=== PATIENT | female | born 1950 | race Caucasian/White ===

== ENCOUNTER → 2020-01-13 11:16 | Outpatient (BNVA) | payer BC, MEDICAID, SELFPAY | PROVIDERS: PCP Registered Nurse; Visit Provider Internal Medicine Rheumatology | DX: M25.50 Pain in unspecified joint (principal); Z79.899 Other long term (current) drug therapy; Z11.59 Encounter for screening for other viral diseases; Z11.1 Encounter for screening for respiratory tuberculosis; R76.8 Other specified abnormal immunological findings in serum; M54.32 Sciatica, left side; M48.02 Spinal stenosis, cervical region; M54.12 Radiculopathy, cervical region | CPT/HCPCS: 36415; 99204 ==

== ENCOUNTER 2020-01-13 13:18 | Outpatient (CLI) | payer MEDICARE, MEDICAID, SELFPAY ==
--- NOTE | 2020-01-13 14:11 | XR_ITS ---
WS: [id number] CHEST 2 VIEWS HISTORY: inflammatory arthritis COMPARISON: 05/05/2013 Lungs: Clear with no abnormality. No pleural effusion or pneumothorax. Cardiac size: Mildly enlarged cardiac silhouette. Mediastinum/Aorta: Mild atherosclerosis aorta. Bones: Slight increase in thoracic kyphosis with mild spondylitic changes in the thoracic spine. XR/XR chest 2V* [id number] IMPRESSION: Mild cardiomegaly. No acute interval change.
--- NOTE | 2020-01-13 14:11 | XR_ITS ---
WS: [id number] LEFT HAND: 3 VIEW(S) TECHNIQUE: PA, oblique and lateral. HISTORY: inflammatory arthritis COMPARISON: None available. No acute fracture or dislocation. Mild narrowing of the interphalangeal joints. Moderate osteoarthritic changes at the first carpometac arpal joint. No erosions. Minimal osteopenia. XR/XR hand LT min 3V* [id number] IMPRESSION: Mild osteoarthritis.
--- NOTE | 2020-01-13 14:11 | XR_ITS ---
WS: [id number] RIGHT FOOT: 3 VIEW(S) TECHNIQUE: AP, oblique and lateral. HISTORY: inflammatory arthritis COMPARISON: None available. No acute fracture or dislocation. Normal tarsal/metatarsal alignment. No soft tissue abnormality or bone destruction. Small calcaneal spur. Enthesopathy at the Achilles tendon. XR/XR foot RT min 3V* [id number] IMPRESSION: Small calcaneal spur.
--- NOTE | 2020-01-13 14:11 | XR_ITS ---
WS: [id number] LEFT FOOT: 3 VIEW(S) TECHNIQUE: AP, oblique and lateral. HISTORY: inflammatory arthritis COMPARISON: None available. No acute fracture or dislocation. Mild narrowing of the first metatarsophalangeal joint. Small calcaneal spur. Enthesopathy at the Achi lles tendon. Hammertoe deformities. No erosions. No soft tissue abnormality or bone destruction. XR/XR foot LT min 3V* [id number] IMPRESSION: Mild osteoarthritis at the first metatarsophalangeal joint.
--- NOTE | 2020-01-13 14:11 | XR_ITS ---
WS: [id number] RIGHT HAND: 3 VIEW(S) TECHNIQUE: PA, oblique and lateral. HISTORY: inflammatory arthritis COMPARISON: None available. No acute fracture or dislocation. Mild interphalangeal joint space narrowing. Moderate first carpometacarpal joint space narrowing and sclerosis. No erosions. Mild osteopenia. XR/XR hand RT min 3V* [id number] IMPRESSION: Mild to moderate osteoarthritis.
== END 2020-01-13 13:19 | disposition home or self-care (01) ==
LOC: RADWPI 13:25
PROVIDERS: PCP Registered Nurse; Visit Provider Internal Medicine Rheumatology
DX: Z79.899 Other long term (current) drug therapy; R76.8 Other specified abnormal immunological findings in serum; M19.042 Primary osteoarthritis, left hand; M19.041 Primary osteoarthritis, right hand; M19.072 Primary osteoarthritis, left ankle and foot; M77.31 Calcaneal spur, right foot; I51.7 Cardiomegaly
CPT/HCPCS: 71046; 73130; 73630; 80076; 82306; 82565; 85025; 85651; 86140; 86431; 86480; 86704; 86803; 87340

== ENCOUNTER → 2020-02-16 12:53 | Outpatient (BNVA) | payer MEDICARE, MEDICAID, SELFPAY | PROVIDERS: PCP Registered Nurse; Visit Provider Internal Medicine Rheumatology | DX: M25.50 Pain in unspecified joint (principal); Z79.899 Other long term (current) drug therapy; R76.8 Other specified abnormal immunological findings in serum; M54.32 Sciatica, left side; M48.02 Spinal stenosis, cervical region; M54.12 Radiculopathy, cervical region | CPT/HCPCS: 99214 ==

== ENCOUNTER 2020-07-24 15:00 | Observation (INO) | payer MEDICARE, MEDICAID, SELFPAY ==
[2020-07-24] VITALS (10 sets, daily range): BP systolic 91–165; BP diastolic 60–110; PULSE 87–112; RESP 16–24; TEMP 36.6–37.1; O2SAT 95–98
--- NOTE | 2020-07-24 16:15 | XRR_ITS ---
PROCEDURE INFORMATION: Exam: XR Chest Exam date and time: 07/24/2020 4:18 PM Age: 69 years old Clinical indication: Cough and dyspnea; Additional info: Dyspnea/cough TECHNIQUE: Imaging protocol: XR of the chest. Views: 1 view. COMPARISON: CR XR chest 2V* [id number] 01/13/2020 2:26 PM FINDINGS: Lungs: Unremarkable. No consolidation. Pleural spaces: Unremarkable. No pleural effusion. No pneumothorax. Heart/Mediastinum: Unremarkable. No cardiomegaly. Bones/joints: Unremarkable. XR/XR chest 1V portable [id number] IMPRESSION: 1. No acute findings. 2. No change from comparison.
--- NOTE | 2020-07-24 16:15 | ECG_ITS ---
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 Measurements Intervals [place] Rate: 131 P: PA: QRS: 40 QRSD: 90 T: -4 QT: 301 QTc: 446 Interpretive Statements ATRIAL FIBRILLATION WITH RAPID VENTRICULAR RESPONSE NONSPECIFIC T-WAVE ABNORMALITY ABNORMAL RHYTHM ECG No previous ECG available for comparison Electronically Signed On 07-25-2020 12:11:39 CDT by Zaina Paniagua M.D. [email or web address]yt[employer] Softw[facility].[employer]/store/NU/[id number]/[id number] f
--- NOTE | 2020-07-24 16:18 | W.ED.SOB ---
HPI - SOB/Dyspnea General: Chief Complaint: Shortness of Breath/Dyspnea Stated Complaint: HAD FLU SYMPTOMS, CANNOT GET OVER COUGH Time Seen by Provider: 07/24/20 16:01 History of Present Illness: HPI Narrative: 69-year-old female who presents to the emergency room with complaints of shortness of breath. She initially began a week ago she had a fever and a productive cough the fever resolved solved but she still short of breath still having some productive cough some mild orthopnea. She has a history of hypertension atrial fibrillation she been taking all of her medications but at times feels like her A. fib is still a problem. She has limited stamina. She is on anticoagulants and rate control medications. He did not had any anosmia or diarrhea during this episode. MD elicited complaint: shortness of breath and cough Onset (ago): week(s) Context: recent illness Timing: constant Severity: moderate Exacerbating factors: lying flat, exertion and coughing Relieving factors: oxygen, rest and bronchodilators Known history of: other (Atrial fibrillation) Associated symptoms: Reports cough, myalgias, nausea, orthopnea and palpitations; Deny abdominal pain, chest congestion, chest pain, diaphoresis, dizziness, extremity pain, fever(s), hemoptysis, lightheadedness, paresthesias, polydipsia, polyuria, rash, sense of impending doom, syncope or vomiting Treatment prior to arrival: bronchodilator Review of Systems Const: Denies: fever(s) or diaphoresis ENMT: Denies: throat pain, ear or mastoid pain, nasal discharge or nasal congestion Card: Reports: palpitations and orthopnea; Denies: chest pain, lightheadedness or syncope Resp: Denies: hemoptysis or chest congestion GI: Reports: nausea; Denies: abdominal pain or vomiting : Denies: flank pain, difficulty voiding, dysuria, urinary frequency or urinary urgency Musc: Denies: extremity pain Skin/Breast: Denies: rash or pruritus Neuro: Denies: dizziness Endo: Denies: polyuria or polydipsia PFS ED PFSH: Medical History Anti-TPO antibodies present Arthritis Atrial fibrillation Degenerative joint disease (DJD) of lumbar spine Diastolic dysfunction 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 High risk medication use HTN (hypertension) IBS (irritable bowel syndrome) Immunization counseling Inflammatory arthritis Recurrent major depressive disorder Stenosis, cervical spine Systemic lupus erythematosus Surgical History S/p bilateral carpal tunnel release S/P cholecystectomy S/P foot surgery, left S/P lumbar discectomy S/P tubal ligation Family History Father Cancer Other Diabetes Lung disease Rheumatoid arthritis Denies family history of Lupus CAD (coronary artery disease) Chronic kidney disease (CKD) Hypertension Stroke Social History Smoking and tobacco status: never smoked Marital status: History of recent travel: No Physical Exam Const: COMMON NORMALS: no acute distress GENERAL APPEARANCE: cooperative and comfortable ORIENTATION/CONSCIOUSNESS: Yes awake, Yes oriented to person, Yes oriented to place and Yes oriented to time HENMT: COMMON NORMALS: normocephalic, atraumatic and hearing grossly normal bilaterally HEAD & SCALP: normocephalic and atraumatic Neck/C-Spine: COMMON NORMALS: no JVD Resp: COMMON NORMALS: normal respiratory effort, No retractions, No use of accessory muscles and clear to auscultation bilaterally AUSCULTATION: clear to auscultation bilaterally Cardio: COMMON NORMALS: no JVD RATE: tachycardic RHYTHM: abnormal rhythm irregularly irregular GI: COMMON NORMALS: Soft to palpation and No hepatosplenomegaly present AUSCULTATION: Yes normoactive bowel sounds PALPATION: Yes Soft to palpation, No Tenderness to palpation present (GI), No Guarding due to palpation present (GI) and Yes No hepatosplenomegaly present Extremity: COMMON NORMALS: normal to inspection, capillary refill normal, no clubbing, cyanosis or edema, no calf tenderness and no pedal edema Neuro: SENSORIUM/ORIENTATION: Yes oriented to person, Yes oriented to place and Yes oriented to time Skin: COMMON NORMALS: no rashes or lesions noted GENERAL SKIN EXAM: no rashes or lesions noted Course Vital Signs: Vital signs: Vital Signs Temperature 97.8 F 07/25/20 15:29 Pulse Rate 91 07/25/20 15:29 Respiratory Rate 17 07/25/20 15:29 Blood Pressure 98/64 07/25/20 15:29 Pulse Oximetry 97 07/25/20 15:29 MDM - SOB/Dyspnea MDM Narrative: Medical decision making narrative: Initially tried IV and p.o. beta-arleen no improvement switch to Cardizem drip for rate improved will need to be titrated off back to orals we will go ahead and admit discussed with hospitalist orders written Lab Data: Labs: Lab Results 07/24/20 07/24/20 07/24/20 Range/Units 16:15 17:00 17:00 WBC 6.0 (4.0-10.0) 10^3/ uL RBC 4.38 (4.1-5.3) 10^6/u L Hgb 13.5 (11.5-15.3) g/dL Hct 42.0 (37.0-47.0) % MCV 95.9 (81-99) fL MCH 30.8 (28.0-34.0) pg MCHC 32.1 (30.0-36.0) g/dL RDW 12.6 (12.1-15.1) % Plt Count 230 (130-400) 10^3/c mm MPV 10.0 (7.4-10.4) fL Neut % (Auto) 55.6 % Lymph % (Auto) 33.2 % [place] % (Auto) 8.7 % Eos % (Auto) 1.8 % Baso % (Auto) 0.5 % Neut # (Auto) 3.34 (1.8-7.7) 10^3/u L Lymph # (Auto) 2.0 (0.8-4.8) 10^3/u L [place] # (Auto) 0.5 (0.2-0.9) 10^3/u L Eos # (Auto) 0.1 (0.0-0.8) 10^3/u L Baso # (Auto) 0.0 (0.0-0.1) 10^3/u L Nucleated RBC % (a uto) 0 % Nucleated RBCs # 0.0 /100WBC D-Dimer 0.38 (0-0.59) ug/mIFE U Sodium (136-145) mmol/L Potassium (3.5-5.1) mmol/L Chloride (98-107) mmol/L Carbon Dioxide (22-29) mmol/L Anion Gap (5-19) BUN (8-23) mg/dL Creatinine (0.5-0.9) mg/dL GFR Calculation (90-130) mL/min Glucose (65-115) mg/dL Calculated Osmolal ity (285-295) mOsm/k g Calcium (8.5-10.5) mg/dL Total Bilirubin (0.15-1.2) mg/dL AST (0-32) U/L ALT (0-33) U/L Alkaline Phosphata se (35-105) IU/L Troponin T Baselin e (0-10) ng/L Total Protein (6.6-8.7) g/dL Albumin (3.5-5.2) g/dL Globulin (1.3-4.6) g/dL SARS-CoV-2 Ag (Rap id) Negative (Negative) 07/24/20 07/24/20 Range/Units 17:00 17:00 WBC (4.0-10.0) 10^3/ uL RBC (4.1-5.3) 10^6/u L Hgb (11.5-15.3) g/dL Hct (37.0-47.0) % MCV (81-99) fL MCH (28.0-34.0) pg MCHC (30.0-36.0) g/dL RDW (12.1-15.1) % Plt Count (130-400) 10^3/c mm MPV (7.4-10.4) fL Neut % (Auto) % Lymph % (Auto) % [place] % (Auto) % Eos % (Auto) % Baso % (Auto) % Neut # (Auto) (1.8-7.7) 10^3/u L Lymph # (Auto) (0.8-4.8) 10^3/u L [place] # (Auto) (0.2-0.9) 10^3/u L Eos # (Auto) (0.0-0.8) 10^3/u L Baso # (Auto) (0.0-0.1) 10^3/u L Nucleated RBC % (a uto) % Nucleated RBCs # /100WBC D-Dimer (0-0.59) ug/mIFE U Sodium 142 (136-145) mmol/L Potassium 3.9 (3.5-5.1) mmol/L Chloride 108 H (98-107) mmol/L Carbon Dioxide 24 (22-29) mmol/L Anion Gap 13.9 (5-19) BUN 11 (8-23) mg/dL Creatinine 0.8 (0.5-0.9) mg/dL GFR Calculation 70.9 L (90-130) mL/min Glucose 117 H (65-115) mg/dL Calculated Osmolal ity 294 (285-295) mOsm/k g Calcium 7.9 L (8.5-10.5) mg/dL Total Bilirubin 0.4 (0.15-1.2) mg/dL AST 14 (0-32) U/L ALT 11 (0-33) U/L Alkaline Phosphata se 75 (35-105) IU/L Troponin T Baselin e 14 H (0-10) ng/L Total Protein 6.3 L (6.6-8.7) g/dL Albumin 3.5 (3.5-5.2) g/dL Globulin 2.8 (1.3-4.6) g/dL SARS-CoV-2 Ag (Rap id) (Negative) Discharge Plan Discharge Patient Disposition: Admitted As Inpatient Admit Provider: Darrel Ling Clinical Impression: Atrial fibrillation with rapid ventricular response, Diastolic dysfunction, HTN (hypertension) Condition: Stable Discharge Diet: Cardiac Discharge Activity: Resume usual activity Coding Level of Care Code ED Ingot Buggy Operator for Lisseth Fwd Exam Comprehensive
[2020-07-24 17:21] LABS: SARS Covid-2 Antigen Negative (Negative)
[2020-07-24 17:33] LABS: Basophils % 0.5 %; Eosinophils # 0.1 10^3/uL (0.0-0.8); Eosinophils % 1.8 %; Hemoglobin 13.5 g/dL (11.5-15.3); Lymphocytes % 33.2 %; Mean Corpuscular HGB Conc 32.1 g/dL (30.0-36.0); Mean Corpuscular Hemoglobin 30.8 pg (28.0-34.0); Mean Corpuscular Volume 95.9 fL (81-99); Monocytes # 0.5 10^3/uL (0.2-0.9); Monocytes % 8.7 %; Neutrophils # 3.34 10^3/uL (1.8-7.7); Neutrophils % 55.6 %; Nucleated Red Blood Cells % 0 %; Platelet Count 230 10^3/cmm (130-400); Red Blood Count 4.38 10^6/uL (4.1-5.3); Red Cell Distribution Width 12.6 % (12.1-15.1)
[2020-07-24 17:36] LABS: D Dimer 0.38 ug/mIFEU (0-0.59)
[2020-07-24 17:41] LABS: Alanine Aminotransferase 11 U/L (0-33); Albumin Level 3.5 g/dL (3.5-5.2); Alkaline Phosphatase 75 IU/L (35-105); Anion Gap 13.9 (5-19); Aspartate Amino Transferase 14 U/L (0-32); Blood Urea Nitrogen 11 mg/dL (8-23); Calcium 7.9 mg/dL (8.5-10.5); Carbon Dioxide 24 mmol/L (22-29); Chloride 108 mmol/L (98-107); Globulin 2.8 g/dL (1.3-4.6); Glomerular Filtration Rate 70.9 mL/min (90-130); Glucose 117 mg/dL (65-115); Osmolality Calculated 294 mOsm/kg (285-295); Potassium 3.9 mmol/L (3.5-5.1); Sodium 142 mmol/L (136-145); Total Bilirubin 0.4 mg/dL (0.15-1.2); Total Protein 6.3 g/dL (6.6-8.7)
[2020-07-24 17:42] LABS: Troponin(5th) Baseline 14 ng/L (0-10)
[2020-07-24] MEDS: metoprolol tartrate 1 mg/1 mL SDV 5 mL 5 MG IV (18:13)
[2020-07-24] MEDS: metoprolol tartrate 50 mg Tablet PO ×2 (18:13→23:13)
--- NOTE | 2020-07-24 18:15 | ECG_ITS ---
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 Measurements Intervals [place] Rate: 80 P: ND: QRS: 45 QRSD: 94 T: 21 QT: 363 QTc: 419 Interpretive Statements ATRIAL FIBRILLATION ABNORMAL RHYTHM ECG Compared to ECG 07/24/2020 16:57:27 T-wave abnormality no longer present Electronically Signed On 07-25-2020 12:34:49 CDT by Zaina Paniagua M.D. [email or web address] Medicalmagee general hospitalAppcara [facility].[employer]/store/NU/[id number]/[id number] f
--- NOTE | 2020-07-24 18:22 | PM.HP ---
Providers/Chief Complaint Primary Care Provider: Gilda Ayoub Chief Complaint: HAD FLU SYMPTOMS, CANNOT GET OVER COUGH History of Present Illness Lisa Montoya is a 69 year old female with a past medical history of atrial fibrillation on Eliquis, history of Guillain-Bennett?, history of lupus, history of positive antip.o. 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 Patient tells me for the last 2 weeks she has been feeling sick, fatigue, malaise, nonproductive cough, shortness of breath with exertion, chest tightness, chest palpitations. She tells me that she had a fever maybe a week ago. No known exposure to COVID-19. No loss of taste, no loss of smell. No diarrhea. She tells me that she is feeling short of breath so she used a old nebulizer package that she had, when she used it her heart started racing, and took a long time before it came down. Denies smoking. No history of lung disease. Chest tightness is primary in the middle of the chest expiratory shortness of breath. Nonradiating. No diaphoresis. No lightheadedness. No dizziness. She also reports poor appetite. Review of Systems Const: Reports: fever(s), change in appetite, fatigue and malaise; Denies: chills Eyes: Denies: change in vision or blurry vision ENMT: Reports: throat pain and nasal congestion Card: Reports: chest pain, palpitations, irregular heart rhythm and dyspnea on exertion Resp: Reports: dyspnea and non-productive cough; Denies: productive cough or wheezing GI: Denies: abdominal pain, nausea, vomiting, hematemesis, diarrhea, constipation, hematochezia or melena : Denies: flank pain, dysuria or urinary frequency Musc: Reports: joint pain; Denies: neck pain or back pain Skin/Breast: Denies: rash Neuro: Denies: headache(s), dizziness or vertigo Psych: Denies: anxiety or depression Endo: Denies: polyuria or polydipsia Medications/Allergies Home Medications Medication Instructions Recorded Confirmed Last Taken Type apixaban 5 mg tablet 5 mg PO BID@1100,2300 01/07/24/20 07/24/20 History dicyclomine 10 mg capsule 20 mg PO QID PRN cap 04/19/19 07/24/20 Unknown History fluticasone propionate 50 2 spray INTRANASAL DAILY@1100 ml 04/19/19 07/24/20 07/24/20 History mcg/actuation nasal spray,suspension furosemide 20 mg tablet 20 mg PO DAILY PRN tab 10/18/19 07/24/20 Unknown History naproxen 500 mg tablet 500 mg PO BID@1100,2300 tab 10/18/19 07/24/20 07/23/20 History paroxetine HCl 40 mg tablet 20 mg PO DAILY@1100 tab 10/18/19 07/24/20 07/23/20 History Cough Drops 1 dose PO Q4H PRN 07/24/20 07/24/20 07/24/20 History amlodipine 5 mg PO DAILY@1100,2300 07/24/20 07/24/20 07/24/20 14:00 History isosorbide mononitrate 15 mg PO BID@1100,2300 07/24/20 07/24/20 07/24/20 History metoprolol tartrate See Rx Instructions .ROUTE .COMPLEX 07/24/20 07/24/20 07/23/20 History prednisone 5 mg PO DAILY@1100 07/24/20 07/24/20 07/23/20 History sulfasalazine See Rx Instructions .ROUTE .COMPLEX 07/24/20 07/24/20 07/23/20 History Allergies Allergy/AdvReac Type Severity Reaction Status Date / Time Penicillins Allergy Unknown Rash Verified 06/22/20 12:14 PFSH Acute PFSH: Medical History Anti-TPO antibodies present Arthritis Atrial fibrillation Degenerative joint disease (DJD) of lumbar spine Diastolic dysfunction 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 High risk medication use HTN (hypertension) IBS (irritable bowel syndrome) Immunization counseling Inflammatory arthritis Recurrent major depressive disorder Stenosis, cervical spine Systemic lupus erythematosus Surgical History S/p bilateral carpal tunnel release S/P cholecystectomy S/P foot surgery, left S/P lumbar discectomy S/P tubal ligation Family History Father Cancer Other Diabetes Lung disease Rheumatoid arthritis Denies family history of Lupus CAD (coronary artery disease) Chronic kidney disease (CKD) Hypertension Stroke Social History Smoking and tobacco status: never smoked Marital status: History of recent travel: No Vitals/I&O/Wt Last Vital Signs Temp 98.8 F 07/24/20 15:08 Pulse 112 H 07/24/20 18:00 Resp 20 H 07/24/20 18:00 BP 165/110 07/24/20 18:00 Pulse Ox 97 07/24/20 18:00 Physical Exam Const: COMMON NORMALS: no acute distress and patient oriented x3 GENERAL APPEARANCE: cooperative and comfortable HENMT: COMMON NORMALS: normocephalic HEAD & SCALP: normocephalic Eye: COMMON NORMALS: Equal, round and reactive pupils present and EOMs intact bilaterally GENERAL EYE: appearance normal, both eyes and all related structures PUPIL: Yes Equal, round and reactive pupils present Neck/C-Spine: COMMON NORMALS: full ROM, no lymphadenopathy, no JVD and Thyroid normal THYROID: Thyroid normal Lymph: LYMPHATIC: no lymphadenopathy noted Resp: COMMON NORMALS: normal respiratory effort, No retractions, No use of accessory muscles and clear to auscultation bilaterally AUSCULTATION: clear to auscultation bilaterally Cardio: COMMON NORMALS: no JVD, regular rate, regular rhythm, S1 normal heart sound present, S2 normal heart sound present, No gallops present (Cardio), No clicks present (Cardio) and No murmurs present (Cardio) RATE: tachycardic RHYTHM: abnormal rhythm HEART SOUNDS: S1 normal heart sound present and S2 normal heart sound present GI: COMMON NORMALS: Normal to inspection, nondistended, normoactive bowel sounds present, Soft to palpation, non-tender and No hepatosplenomegaly present PALPATION: Yes Soft to palpation and Yes No hepatosplenomegaly present Extremity: COMMON NORMALS: normal to inspection, full ROM and no pedal edema Neuro: COMMON NORMALS: patient oriented x3, CN's II-XII intact bilaterally, moves all extremities and no focal motor deficits Psych: COMMON NORMALS: mental status grossly normal, Normal thought process present and cooperative THOUGHT PROCESS: Normal thought process present Data : 07/24/20 17:00 07/24/20 17:00 A&P Assessment and plan (1) Atrial fibrillation with RVR: -Heart rates 130s to 140s -Did not improve with IV metoprolol, p.o. metoprolol -Will start on Cardizem drip, switch to p.o. metoprolol tomorrow morning or when prudent -Order cardiac echocardiogram -TSH, mag -Follow troponins, serial EKGs Status: Acute (2) Diastolic dysfunction: -Does not look fluid overloaded, will order cardiac echo Status: Acute (3) HTN (hypertension): Status: Acute Qualifiers: Hypertension type: essential hypertension Qualified Code(s): I10 - Essential (primary) hypertension (4) Anti-TPO antibodies present: Status: Acute (5) Viral URI with cough: -Rapid Covid negative -X-ray negative for infiltrates -We will place on Covid precautions -Covid PCR -Sputum culture -Start doxycycline, hold off on steroids for now -Tessalon Perles for cough -He is immunocompromise on sulfasalazine and prednisone Status: Acute (6) Chest pain: -Likely related to cough, viral URI, A. fib -Serial troponins, serial EKGs -Currently chest pain-free -Aspirin, statin Status: Acute Attestations Medical Necessity Statement*: Patient requires hospitalization, outpatient with observation, for A. fib with RVR, chest pain, viral URI Coding Level of Care Code Acute Prison Warden for [facility] Fwd Diagnoses Atrial fibrillation with RVR I48.91 Diastolic dysfunction I51.89 HTN (hypertension) I10 Hypertension type: essential hypertension Anti-TPO antibodies present R76.8 Viral URI with cough J06.9 Chest pain R07.9
[2020-07-24 20:06] LABS: Troponin 5 2HR 12.98 ng/L (0-10); Troponin 5 2HR Delta -1.02 ABS# (0-10)
[2020-07-24 21:18] LABS: Magnesium 2.2 mg/dL (1.7-2.3); NT Pro B Type Natriuretic Pept 195 pg/mL (0-125); Thyroid Stimulating Hormone 1.77 uIU/mL (0.27-4.20)
[2020-07-24] MEDS: atorvastatin 40 mg Tablet PO (21:56)
[2020-07-24] MEDS: doxycycline 100 mg Tablet PO (21:56)
[2020-07-24] MEDS: naproxen 500 mg Tablet PO (22:00)
[2020-07-24] MEDS: apixaban 5 mg Tablet PO (22:00)
[2020-07-24] MEDS: isosorbide mononitrate ER 30 mg Tablet 15 MG PO (22:01)
--- NOTE | 2020-07-24 22:15 | ECG_ITS ---
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: : 1950 Requested By: Oracio Zhou Order Number: [id number] Reading MD: DERRICK CALI Measurements Intervals [place] Rate: 93 P: [place]: QRS: 38 QRSD: 96 T: 3 QT: 350 QTc: 435 Interpretive Statements ATRIAL FIBRILLATION WITH ABERRANT CONDUCTION OR VENTRICULAR PREMATURE COMPLEXES NONSPECIFIC T-WAVE ABNORMALITY ABNORMAL RHYTHM ECG Compared to ECG 07/24/2020 18:53:06 Ventricular premature complex(es) now present Aberrant conduction of supraventricular beat(s) now present T-wave abnormality now present Electronically Signed On 07-26-2020 19:24:44 CDT by DERRICK CALI [email or web address].Silvigengulf coast veterans health care systemConferenceEdgecleveland clinic [facility].[employer]/store/OM/[id number]/[id number]
[2020-07-24] MEDS: albuterol 8 gm MDI 1 PUFF INHALATION (23:25)
[2020-07-24 23:29] LABS: Troponin 5 6HR 10.09 ng/L (0-10); Troponin 5 6HR Delta -3.91 ng/L (0-12)
[2020-07-25] VITALS (12 sets, daily range): BP systolic 98–129; BP diastolic 64–85; PULSE 79–110; RESP 17–23; TEMP 36.6–36.9; O2SAT 91–97
[2020-07-25] MEDS: albuterol 8 gm MDI 1 PUFF INHALATION ×3 (04:35→11:19)
[2020-07-25 05:08] LABS: Basophils % 0.7 %; Eosinophils # 0.1 10^3/uL (0.0-0.8); Hematocrit 40.7 % (37.0-47.0); Hemoglobin 13.2 g/dL (11.5-15.3); Lymphocytes % 50.1 %; Mean Corpuscular HGB Conc 32.4 g/dL (30.0-36.0); Mean Corpuscular Hemoglobin 31.3 pg (28.0-34.0); Mean Corpuscular Volume 96.4 fL (81-99); Mean Platelet Volume 9.9 fL (7.4-10.4); Monocytes # 0.6 10^3/uL (0.2-0.9); Monocytes % 9.5 %; Neutrophils # 2.25 10^3/uL (1.8-7.7); Neutrophils % 37.5 %; Nucleated Red Blood Cells % 0 %; Platelet Count 223 10^3/cmm (130-400); Red Blood Count 4.22 10^6/uL (4.1-5.3); Red Cell Distribution Width 12.6 % (12.1-15.1)
[2020-07-25 05:36] LABS: C Reactive Protein 11.9 mg/L (0.0-4.9); Magnesium 2.1 mg/dL (1.7-2.3)
[2020-07-25 05:38] LABS: NT Pro B Type Natriuretic Pept 1120 pg/mL (0-125); Procalcitonin 0.05 ng/mL (0-0.5)
[2020-07-25 05:41] LABS: Alanine Aminotransferase 10 U/L (0-33); Albumin Level 3.3 g/dL (3.5-5.2); Alkaline Phosphatase 70 IU/L (35-105); Aspartate Amino Transferase 14 U/L (0-32); Blood Urea Nitrogen 12 mg/dL (8-23); Calcium 8.2 mg/dL (8.5-10.5); Carbon Dioxide 24 mmol/L (22-29); Chloride 109 mmol/L (98-107); Globulin 2.6 g/dL (1.3-4.6); Glomerular Filtration Rate 82.7 mL/min (90-130); Glucose 110 mg/dL (65-115); Osmolality Calculated 290 mOsm/kg (285-295); Sodium 140 mmol/L (136-145); Total Bilirubin 0.6 mg/dL (0.15-1.2); Total Protein 5.9 g/dL (6.6-8.7)
[2020-07-25 06:08] LABS: Influenza A by IFA Negative (Negative); Influenza B by IFA Negative (Negative)
[2020-07-25] MEDS: amlodipine 5 mg Tablet PO (08:58)
[2020-07-25] MEDS: FUROsemide 10 mg/mL SDV 4mL 40 MG IVP (08:58)
[2020-07-25] MEDS: doxycycline 100 mg Tablet PO (08:58)
[2020-07-25] MEDS: aspirin 81 mg EC Tablet PO (08:58)
[2020-07-25] MEDS: metoprolol tartrate 50 mg Tablet PO (09:11)
--- NOTE | 2020-07-25 09:55 | PC.CHAP ---
Pastoral Care Encounter/Spiritual Assessment Type of Contact [] Declined ortho assistant visit [] Patient/Family/Request visit [] Outpatient visit [] Follow-up visit [] Physician referral [] Code/Alert [x] Routine visit [] Staff referral [] Actively dying [] Patient sleeping [] Family support [] [] Out of room [] Palliative care [] [] Receiving care in room [] Pre-surgical visit [] Trauma [] Long length of stay [] ICU visit [x] Other: isolation Relational/Emotional Strength [] Patient feels connected with others/family/visitors/staff [] Distress [] Loneliness/isolation [] Abandonment Spirituality of Patient [] Person of Milana [] Attends Nondenominational of their Milana [] Believes in Prayer [] Reads Bible or Restorationist materials [] There are Spiritual issues to be addressed Licensed Final Expense Agents Interventions [x] Prayer [] Active listening [] Non-anxious presence [] Spiritual/emotional support [] Crisis/trauma care [] Spiritual counseling [] Bereavement support [] Provided bereavement packet [] Provided Bible/devotional materials [] Provided toy/stuffed animal, coloring book to patient or family member [] Provided Communion [] Anointing/Krypton [] Salvation [x] Completed spiritual assessment [] Other: Impact on Illness or Injury [] Angry [] Fearful [] Anxious [] Often cries [] Exhaustion [] Unable to work [] Unable to attend hoahaoism [] Unable to walk/stand [] Unable to read [] Unable to drive [] Unable to eat/drink [] Unable to sleep [] Unable to be with family [] Patient intubated [] Other: Summary Time spent with patient
[2020-07-25] MEDS: fluticasone nasal spray 16gm Btl 2 SPRAY INTRANASAL (10:45)
[2020-07-25] MEDS: naproxen 500 mg Tablet PO (10:45)
[2020-07-25] MEDS: apixaban 5 mg Tablet PO (10:45)
[2020-07-25] MEDS: PARoxetine 20 mg Tablet PO (10:45)
[2020-07-25] MEDS: isosorbide mononitrate ER 30 mg Tablet 15 MG PO (10:45)
--- NOTE | 2020-07-25 13:31 | P.DS_ITS ---
Discharge Providers Date of Admission: 07/24/20 17:53 Date of Discharge: July 25, 2020 Attending Provider at Admission: Darrel Ling MD Attending Provider at Discharge: Darrel Ling MD Primary Care Provider: Gilda Ayoub Diagnoses at Discharge Discharge Diagnosis (1) Atrial fibrillation with RVR: Status: Acute (2) Diastolic dysfunction: Status: Acute (3) HTN (hypertension): Status: Acute Qualifiers: Hypertension type: essential hypertension Qualified Code(s): I10 - Essential (primary) hypertension (4) Anti-TPO antibodies present: Status: Acute (5) Viral URI with cough: Status: Acute (6) Chest pain: Status: Acute Reason for Visit Reason for Visit: HAD FLU SYMPTOMS, CANNOT GET OVER COUGH Hospital Course Hospital Course Lisa Montoya is a 69 year old female with a past medical history of atrial fibrillation on Eliquis, history of Guillain-Bennett?, history of lupus, history of positive antip.o. antibiotics, currently on chronic prednisone and sulfasalazine, who presents to [facility] due to 2-week history of cough, sinus congestion, shortness of breath, chest palpitations and chest pain. For her viral URI, her flu was negative, rapid Covid negative, she clinically improved with doxycycline and prednisone. Discharged on doxycycline and prednisone, with instructions to continue to self isolate, socially distance, hand wash, until her Covid PCR test are known For her shortness of breath secondary to diastolic CHF and atrial fibrillation For atrial fibrillation with RVR, managed with metoprolol 50 mg twice daily, tolerated well, discharged on the top of 50 mg twice daily, with Eliquis 5 mg twice daily with close follow-up with cardiology as outpatient For diastolic CHF, managed with inpatient diuresis, clinically improved, echocardiogram showed of EF of 61%, grade 2 out of 4 diastolic dysfunction, monitor severe calcification of aortic valve which may be sclerotic to mildly stenotic. Discharged on Lasix 20 mg daily with potassium placement follow-up with cardiology as outpatient For her chest pain, no acute ST-T wave changes, troponins were mildly elevated, no significant delta, no repeat episodes of chest pain, discharged on aspirin, statin, with follow-up with cardiology as outpatient for consideration of stress testing Physical Exam Const: COMMON NORMALS: no acute distress and patient oriented x3 HENMT: COMMON NORMALS: normocephalic HEAD & SCALP: normocephalic Neck/C-Spine: COMMON NORMALS: no JVD Resp: COMMON NORMALS: normal respiratory effort, No retractions, No use of accessory muscles and clear to auscultation bilaterally AUSCULTATION: clear to auscultation bilaterally Cardio: COMMON NORMALS: no JVD, regular rate, regular rhythm, S1 normal heart sound present and S2 normal heart sound present RATE: regular rate RHYTHM: regular rhythm HEART SOUNDS: S1 normal heart sound present and S2 normal heart sound present GI: COMMON NORMALS: Normal to inspection, nondistended, normoactive bowel sounds present, Soft to palpation, non-tender, No hepatosplenomegaly present, no masses and no bruits PALPATION: Yes Soft to palpation and Yes No hepatosplenomegaly present Extremity: COMMON NORMALS: capillary refill normal, no clubbing, cyanosis or edema, no calf tenderness and no pedal edema Neuro: COMMON NORMALS: patient oriented x3 Psych: COMMON NORMALS: mental status grossly normal Discharge Data Data Completed and Pending: Completed Studies During Hospitalization Category Date Time Status XR chest 1V ye ble [id number] Stat Exams 07/24/20 16:15 Completed CV echo complete* [id number] Routine Ultrasound 07/25/20 20:41 Completed Pending at discharge Category Date Time Status C Reactive Protei n AM LABS Lab 07/26/20 04:00 Ordered C Reactive Protei n AM LABS Lab 07/27/20 04:00 Ordered Coronavirus Test [facility] Lab 07/24/20 20:21 Received Magnesium AM LABS Lab 07/26/20 04:00 Ordered Magnesium AM LABS Lab 07/27/20 04:00 Ordered NT Pro B Type April riuretic Pept QAM Lab 07/26/20 06:00 Ordered NT Pro B Type April riuretic Pept QAM Lab 07/27/20 06:00 Ordered Phosphorus AM LAB S Lab 07/26/20 04:00 Ordered Phosphorus AM LAB S Lab 07/27/20 04:00 Ordered Procalcitonin AM LABS Lab 07/26/20 04:00 Ordered Procalcitonin AM LABS Lab 07/27/20 04:00 Ordered Sputum Culture an d Gram Stain Stat Lab 07/24/20 20:41 Uncollected Labs from last 24 hours 07/25/20 07/25/20 07/25/20 05:00 04:43 04:43 WBC RBC Hgb Hct MCV MCH MCHC RDW Plt Count MPV Neut % (Auto) Lymph % (Auto) Dickens % (Auto) Eos % (Auto) Baso % (Auto) Neut # (Auto) Lymph # (Auto) Dickens # (Auto) Eos # (Auto) Baso # (Auto) Nucleated RBC % (a uto) Nucleated RBCs # D-Dimer Sodium Potassium Chloride Carbon Dioxide Anion Gap BUN Creatinine GFR Calculation Glucose Calculated Osmolal ity Calcium Phosphorus 3.0 Magnesium 2.1 Total Bilirubin AST ALT Alkaline Phosphata se Troponin T Baselin e Troponin T 120 Min [place] Delta Troponin T Troponin T Hi Sens 6Hr Troponin T Hi Sens 6Hr Delta C-Reactive Protein 11.9 H NT-Pro-B Natriuret Pep 1120 H Total Protein Albumin Globulin Procalcitonin 0.05 TSH Nasal/Oral COVID-1 9 PCR Influenza Type A A g Negative Influenza Type B A g Negative SARS-CoV-2 Ag (Rap id) 07/25/20 07/25/20 07/24/20 04:43 04:43 22:55 WBC 6.0 RBC 4.22 Hgb 13.2 Hct 40.7 MCV 96.4 MCH 31.3 MCHC 32.4 RDW 12.6 Plt Count 223 MPV 9.9 Neut % (Auto) 37.5 Lymph % (Auto) 50.1 Dickens % (Auto) 9.5 Eos % (Auto) 2.0 Baso % (Auto) 0.7 Neut # (Auto) 2.25 Lymph # (Auto) 3.0 Dickens # (Auto) 0.6 Eos # (Auto) 0.1 Baso # (Auto) 0.0 Nucleated RBC % (a uto) 0 Nucleated RBCs # 0.0 D-Dimer Sodium 140 Potassium 4.0 Chloride 109 H Carbon Dioxide 24 Anion Gap 11.0 BUN 12 Creatinine 0.7 GFR Calculation 82.7 L Glucose 110 Calculated Osmolal ity 290 Calcium 8.2 L Phosphorus Magnesium Total Bilirubin 0.6 AST 14 ALT 10 Alkaline Phosphata se 70 Troponin T Baselin e Troponin T 120 Min [place] Delta Troponin T Troponin T Hi Sens 6Hr 10.09 H Troponin T Hi Sens 6Hr Delta -3.91 L C-Reactive Protein NT-Pro-B Natriuret Pep Total Protein 5.9 L Albumin 3.3 L Globulin 2.6 Procalcitonin TSH Nasal/Oral COVID-1 9 PCR Influenza Type A A g Influenza Type B A g SARS-CoV-2 Ag (Rap id) 07/24/20 07/24/20 07/24/20 20:21 19:30 19:30 WBC RBC Hgb Hct MCV MCH MCHC RDW Plt Count MPV Neut % (Auto) Lymph % (Auto) Dickens % (Auto) Eos % (Auto) Baso % (Auto) Neut # (Auto) Lymph # (Auto) Dickens # (Auto) Eos # (Auto) Baso # (Auto) Nucleated RBC % (a uto) Nucleated RBCs # D-Dimer Sodium Potassium Chloride Carbon Dioxide Anion Gap BUN Creatinine GFR Calculation Glucose Calculated Osmolal ity Calcium Phosphorus Magnesium 2.2 Total Bilirubin AST ALT Alkaline Phosphata se Troponin T Baselin e Troponin T 120 Min [place] 12.98 H Delta Troponin T -1.02 L Troponin T Hi Sens 6Hr Troponin T Hi Sens 6Hr Delta C-Reactive Protein NT-Pro-B Natriuret Pep 195 H Total Protein Albumin Globulin Procalcitonin TSH 1.77 Nasal/Oral COVID-1 9 PCR Pending Influenza Type A A g Influenza Type B A g SARS-CoV-2 Ag (Rap id) 07/24/20 07/24/20 07/24/20 17:00 17:00 17:00 WBC RBC Hgb Hct MCV MCH MCHC RDW Plt Count MPV Neut % (Auto) Lymph % (Auto) Dickens % (Auto) Eos % (Auto) Baso % (Auto) Neut # (Auto) Lymph # (Auto) Dickens # (Auto) Eos # (Auto) Baso # (Auto) Nucleated RBC % (a uto) Nucleated RBCs # D-Dimer 0.38 Sodium 142 Potassium 3.9 Chloride 108 H Carbon Dioxide 24 Anion Gap 13.9 BUN 11 Creatinine 0.8 GFR Calculation 70.9 L Glucose 117 H Calculated Osmolal ity 294 Calcium 7.9 L Phosphorus Magnesium Total Bilirubin 0.4 AST 14 ALT 11 Alkaline Phosphata se 75 Troponin T Baselin e 14 H Troponin T 120 Min [place] Delta Troponin T Troponin T Hi Sens 6Hr Troponin T Hi Sens 6Hr Delta C-Reactive Protein NT-Pro-B Natriuret Pep Total Protein 6.3 L Albumin 3.5 Globulin 2.8 Procalcitonin TSH Nasal/Oral COVID-1 9 PCR Influenza Type A A g Influenza Type B A g SARS-CoV-2 Ag (Rap id) 07/24/20 07/24/20 17:00 16:15 WBC 6.0 RBC 4.38 Hgb 13.5 Hct 42.0 MCV 95.9 MCH 30.8 MCHC 32.1 RDW 12.6 Plt Count 230 MPV 10.0 Neut % (Auto) 55.6 Lymph % (Auto) 33.2 Dickens % (Auto) 8.7 Eos % (Auto) 1.8 Baso % (Auto) 0.5 Neut # (Auto) 3.34 Lymph # (Auto) 2.0 Dickens # (Auto) 0.5 Eos # (Auto) 0.1 Baso # (Auto) 0.0 Nucleated RBC % (a uto) 0 Nucleated RBCs # 0.0 D-Dimer Sodium Potassium Chloride Carbon Dioxide Anion Gap BUN Creatinine GFR Calculation Glucose Calculated Osmolal ity Calcium Phosphorus Magnesium Total Bilirubin AST ALT Alkaline Phosphata se Troponin T Baselin e Troponin T 120 Min [place] Delta Troponin T Troponin T Hi Sens 6Hr Troponin T Hi Sens 6Hr Delta C-Reactive Protein NT-Pro-B Natriuret Pep Total Protein Albumin Globulin Procalcitonin TSH Nasal/Oral COVID-1 9 PCR Influenza Type A A g Influenza Type B A g SARS-CoV-2 Ag (Rap id) Negative Vitals: Last Vital Signs Temp 97.8 F 07/25/20 10:45 Pulse 91 07/25/20 11:21 Resp 18 07/25/20 11:10 BP 98/64 07/25/20 10:45 Pulse Ox 96 07/25/20 11:10 Discharge Plan Discharge Patient Disposition: Home Condition: Stable Prescriptions: New benzonatate 100 mg Capsule 100 mg PO TID PRN (Reason: Cough) 15 Days Qty: 45 RF: 0 doxycycline monohydrate 100 mg Tablet 100 mg PO BID 6 Days Qty: 12 RF: 0 albuterol sulfate [Ventolin HFA] 90 mcg/actuation Hfa Aerosol Inhaler 1 puff inhalation Q4H.RESPIRATORY PRN (Reason: shortness of breath or wheezing) Qty: 8.5 RF: 0 aspirin 81 mg Tablet,Delayed Release (Dr/Ec) 81 mg PO DAILY 30 Days Qty: 30 RF: 0 atorvastatin 40 mg Tablet 40 mg PO BEDTIME 30 Days Qty: 30 RF: 0 metoprolol tartrate 50 mg Tablet 50 mg PO BID@0900,2100 30 Days Qty: 60 RF: 0 potassium chloride [Klor-Con 10] 10 mEq tablet extended release 10 meq PO DAILY 30 Days Qty: 30 RF: 0 prednisone 20 mg tablet 20 mg PO BID 5 Days Qty: 10 RF: 0 Continued apixaban 5 mg tablet 5 mg PO BID@1100,2300 RF: 0 fluticasone propionate [Flonase Allergy Relief] 50 mcg/actuation spray,suspension 2 spray INTRANASAL DAILY@1100 RF: 0 dicyclomine 10 mg capsule 20 mg PO QID PRN (Reason: abdominal cramps) RF: 0 paroxetine HCl 40 mg tablet 20 mg PO DAILY@1100 RF: 0 isosorbide mononitrate 30 mg tablet extended release 24 hr 15 mg PO BID@1100,2300 RF: 0 prednisone 5 mg tablet 5 mg PO DAILY@1100 RF: 0 amlodipine 5 mg tablet 5 mg PO DAILY Qty: 0 RF: 0 Changed furosemide 20 mg tablet 20 mg PO DAILY 30 Days Qty: 30 RF: 0 Held sulfasalazine 500 mg tablet See Rx Instructions .ROUTE .COMPLEX RF: 0 Hold Instructions: Resume on 08/08/20. until for 2 weeks Discontinued naproxen [Naprosyn] 500 mg tablet 500 mg PO BID@1100,2300 RF: 0 metoprolol tartrate 25 mg tablet See Rx Instructions .ROUTE .COMPLEX RF: 0 Cough Drops 1 dose PO Q4H PRN (Reason: Cough) RF: 0 Discharge Orders: Discharge Order (Routine); Ordered 07/25/20 Ordered By: Darrel Ling Referrals: Zaina Paniagua MD [Physician] - 2 weeks (diastolic chf) Discharge Diet: Cardiac Discharge Activity: Resume usual activity Patient Instructions: Opioid Safety Activity Restrictions/Additional Instructions: -For your viral URI please continue prednisone and doxycycline -After prednisone has finished, continue 5 mg once daily -Hold sulfasalazine until seen by rheumatology -Adjuvant Covid PCR is pending, continue to self isolate, socially distance, hand wash until results are known over the next 24 to 48 hours -For your diastolic heart failure Lasix 20 mg once daily scheduled with potassium placement, follow-up with cardiology Discharge Attestations Time Spent in Discharge Care*: less than 30 min Quality Metrics Clinical Quality Measures During this hospital stay, did patient experience: None Coding Level of Care Code Acute Chg FW DC note Exam Comprehensive Diagnoses Atrial fibrillation with RVR I48.91 Diastolic dysfunction I51.89 HTN (hypertension) I10 Hypertension type: essential hypertension Anti-TPO antibodies present R76.8 Viral URI with cough J06.9 Chest pain R07.9
[2020-07-25 14:23] LABS: Coronavirus Test Green County Not Detected
--- NOTE | 2020-07-25 20:41 | USCV_ITS ---
Lisa Montoya Age: 69 Gender: F : 1950 Exam Date: 07/25/2020 06:12 Ordering Phys: Darrel iLng MD Technologist: Exam Location: [facility] [place] Indication: SOB BP: 117 / 85 HR: 94 Rhythm: Sinus Technical Quality: Adequate MEASUREMENTS (Male / Female) Normal Values 2D ECHO LV Diastolic Diameter PLAX 3.6 cm 4.2 - 5.9 / 3.9 - 5.3 cm LV Systolic Diameter PLAX 2.8 cm IVS Diastolic Thickness 1.2 cm 0.6 - 1.0 / 0.6 - 0.9 cm IVS Systolic Thickness 1.1 cm LVPW Diastolic Thickness 1.0 cm 0.6 - 1.0 / 0.6 - 0.9 cm LVPW Systolic Thickness 1.2 cm LVOT Diameter 2.1 cm LV Ejection Fraction 2D Teich 46.2 % LV Ejection Fraction MOD 2C 50.7 % LV Ejection Fraction 2C AL 51.8 % LA Diameter 4.1 cm LA Width 4.1 cm LA Height 5.5 cm RA Width 4.5 cm RA Height 5.3 cm Aorta at Sinotubular Diameter 2.4 cm M-MODE LV Diastolic Diameter MM 5.2 cm 4.2 - 5.9 / 3.9 - 5.3 cm LV Systolic Diameter MM 3.5 cm LV Ejection Fraction MM Teich 61.6 % IVS Diastolic Thickness MM 0.8 cm 0.6 - 1.0 / 0.6 - 0.9 cm IVS Systolic Thickness MM 1.9 cm LVPW Diastolic Thickness MM 1.4 cm 0.6 - 1.0 / 0.6 - 0.9 cm LVPW Systolic Thickness MM 1.6 cm RV Diastolic Diameter MM 1.7 cm Aortic Annulus Diameter 3.1 cm LA Ao Ratio MM 1.5 MV E Point Septal Separation 0.6 cm DOPPLER AV Peak Velocity 121.0 cm/s LVOT Peak Velocity 91.0 cm/s AV Area Cont Eq vti 2.7 cm squared AV Area Cont Eq pk 2.5 cm squared MV Area PHT 5.0 cm squared Mitral E to A Ratio 2.7 MV E' Velocity 77.0 cm/s Mitral E to MV E' Ratio 12.4 Mitral E to LV E' Lateral Ratio 13.9 Mitral E to LV E' Septal Ratio 11.3 TR Peak Velocity 158.7 cm/s TR Peak Gradient 10.1 mmHg TV Peak E Velocity 90.0 cm/s Right Atrial Pressure 3.0 mmHg Pulmonary Artery Systolic Pressu 13.1 mmHg PV Peak Velocity 105.0 cm/s FINDINGS Left Ventricle Normal left ventricular cavity size. Normal left ventricular systolic function. Left ventricular ejection fraction is estimated at 61 %. Grade II/IV diastolic dysfunction, moderately elevated filling pressures. Right Ventricle The right ventricle is normal in size and function. Right Atrium The right atrium is normal in size. Left Atrium The left atrium is normal in size. Mitral Valve Structurally normal mitral valve without significant stenosis or prolapse. There is no mitral regurgitation. Aortic Valve Severe aortic valve calcification. Mild aortic valve stenosis, mean gradient 2.6 mmHg, OSVALDO 2.7 cm squared. No aortic valve regurgitation. Tricuspid Valve Structurally normal tricuspid valve without significant stenosis or regurgitation. Pulmonary artery systolic pressure is normal. Pulmonic Valve Structurally normal pulmonic valve without significant stenosis. There is no pulmonic regurgitation. Pericardium Normal pericardium without effusion. Aorta Normal ascending aorta dimension. CONCLUSIONS 1-Normal left ventricular cavity size. Normal left ventricular systolic function. Left ventricular ejection fraction is estimated at 61 %. Grade II/IV diastolic dysfunction, moderately elevated filling pressures. 2-Severe aortic valve calcification. Mild aortic valve stenosis, mean gradient 2.6 mmHg, OSVALDO 2.7 cm squared. No aortic valve regurgitation. 3-There is no pericardial effusion. 4-Pulmonary artery systolic pressure is within normal limits. 5-Right atrial pressure is around 5 mm of mercury. 6-When compared to the prior echocardiogram dated September 14, 2013 there is no significant change except moderate to severe calcification of aortic valve which may be sclerotic to mildly stenotic. Please note that this study images are of suboptimal quality. Donald Dasilva MD (Electronically Signed) Final Date: 25 July 2020 12:59 S
== END 2020-07-25 15:40 | disposition home or self-care (01) | DRG 309 ==
LOC: ER 16:01 → CSU 07-25 13:31
PROVIDERS: Admitting Provider Family Medicine; Emergency Provider Family Medicine; PCP Registered Nurse; Visit Provider Family Medicine
DX: I48.91 Unspecified atrial fibrillation (principal); I11.0 Hypertensive heart disease with heart failure; I50.30 Unspecified diastolic (congestive) heart failure; R76.8 Other specified abnormal immunological findings in serum; J06.9 Acute upper respiratory infection, unspecified; R07.9 Chest pain, unspecified; Z79.01 Long term (current) use of anticoagulants; G61.0 Guillain-Barre syndrome; M32.9 Systemic lupus erythematosus, unspecified; Z79.52 Long term (current) use of systemic steroids; M19.90 Unspecified osteoarthritis, unspecified site; F33.9 Major depressive disorder, recurrent, unspecified; K58.9 Irritable bowel syndrome, unspecified; M48.02 Spinal stenosis, cervical region; Z98.1 Arthrodesis status; I70.0 Atherosclerosis of aorta
CPT/HCPCS: 36415; 71045; 80053; 83735; 83880; 84100; 84145; 84443; 84484; 85025; 85378; 86140; 87426; 87635; 87804; 93005; 93306; 94640; 96374; 96375; 99285; G0378; J1940; J2920; J3490; J3535

== ENCOUNTER 2020-08-07 01:18 | Observation (INO) | payer MEDICARE, MEDICAID, SELFPAY ==
[2020-08-07] VITALS (10 sets, daily range): BP systolic 102–140; BP diastolic 58–88; PULSE 69–100; RESP 16–18; TEMP 36.4–37.1; O2SAT 94–99; BMI 44.2
[2020-08-07] MEDS: metoprolol tartrate 1 mg/1 mL SDV 5 mL 5 MG IV (02:26)
[2020-08-07] MEDS: sodium chloride 0.9% 1,000 ML 999 ML IV (02:27)
[2020-08-07] MEDS: ondansetron 2 mg/ML SDV 2 mL 4 MG IVP (02:27)
[2020-08-07 02:28] LABS: Basophils % 0.4 %; Eosinophils # 0.1 10^3/uL (0.0-0.8); Eosinophils % 1.5 %; Hematocrit 47.6 % (37.0-47.0); Hemoglobin 15.6 g/dL (11.5-15.3); Lymphocytes # 2.1 10^3/uL (0.8-4.8); Lymphocytes % 26.7 %; Mean Corpuscular HGB Conc 32.8 g/dL (30.0-36.0); Mean Corpuscular Hemoglobin 31.5 pg (28.0-34.0); Mean Platelet Volume 10.1 fL (7.4-10.4); Monocytes # 0.6 10^3/uL (0.2-0.9); Monocytes % 7.6 %; Neutrophils # 5.05 10^3/uL (1.8-7.7); Neutrophils % 63.5 %; Nucleated Red Blood Cells % 0 %; Platelet Count 208 10^3/cmm (130-400); Red Blood Count 4.96 10^6/uL (4.1-5.3); Red Cell Distribution Width 12.8 % (12.1-15.1); White Blood Count 7.9 10^3/uL (4.0-10.0)
[2020-08-07 02:44] LABS: Alanine Aminotransferase 18 U/L (0-33); Albumin Level 3.6 g/dL (3.5-5.2); Alkaline Phosphatase 80 IU/L (35-105); Anion Gap 12.7 (5-19); Aspartate Amino Transferase 13 U/L (0-32); Blood Urea Nitrogen 10 mg/dL (8-23); C Reactive Protein 38.3 mg/L (0.0-4.9); Calcium 8.2 mg/dL (8.5-10.5); Carbon Dioxide 25 mmol/L (22-29); Chloride 105 mmol/L (98-107); Globulin 3.1 g/dL (1.3-4.6); Glomerular Filtration Rate 61.9 mL/min (90-130); Glucose 109 mg/dL (65-115); Lipase 11 U/L (13-60); Osmolality Calculated 288 mOsm/kg (285-295); Potassium 3.7 mmol/L (3.5-5.1); Sodium 139 mmol/L (136-145); Total Bilirubin 0.4 mg/dL (0.15-1.2); Total Protein 6.7 g/dL (6.6-8.7)
[2020-08-07 02:48] LABS: Add Urine Microscopic? YES; Bilirubin Urine 1+ (Negative); Blood Urine Neg (Negative); Glucose Urine UA Norm (Normal); Ketones Urine 1+ (Negative); Leukocyte Esterase Urine Negative (Negative); Nitrate Urine Negative (Negative); Protein Urine Trace (Negative); Urine Appearance SL Hazy (CLEAR); Urine Color Yellow (Yellow); Urobilinogen Urine 1 mg/dL (Negative); pH Urine 5 (5-7)
[2020-08-07 02:53] LABS: Bacteria Urine 1+ /hpf; Mucus Urine 4+ /hpf; RBC Urine 0-4 /hpf (0-2); Squamous Epithelial Cell Urine 25-40 /hpf (0-5); WBC Urine 0-4 /hpf (0-5)
[2020-08-07 02:54] LABS: Add Urine Culture? No
--- NOTE | 2020-08-07 03:01 | CTR_ITS ---
PROCEDURE INFORMATION: Exam: CT Abdomen And Pelvis With Contrast Exam date and time: 08/07/2020 3:06 AM Age: 69 years old Clinical indication: Nausea and vomiting; Prior surgery; Surgery date: 6+ months; Surgery type: Gb, l-sp; Patient HX: C/O n/v/d x 1 week w ruq pain TECHNIQUE: Imaging protocol: Computed tomography of the abdomen and pelvis with contrast. Radiation optimization: All CT scans at this facility use at least one of these dose optimization techniques: automated exposure control; mA and/or kV adjustment per patient size (includes targeted exams where dose is matched to clinical indication); or iterative reconstruction. Contrast material: OMNI 300; Contrast volume: 95 ml; Contrast route: INTRAVENOUS (IV); COMPARISON: No relevant prior studies available. RADIATION DOSE METRICS: Total DLP (mGy-cm): 1751.33 FINDINGS: Liver: Normal. No mass. Gallbladder and bile ducts: Status post cholecystectomy. Pancreas: Normal. No ductal dilation. Spleen: Punctate calcifications are seen within the spleen compatible with calcified granulomas. Adrenal glands: Normal. No mass. Kidneys and ureters: There is some subtle hypoattenuation seen within the upper pole of the left kidney. This finding can be seen with pyelonephritis. Stomach and bowel: Diverticula are seen on the descending and sigmoid colon. There are some hazy opacities adjacent to the distal descending colon and proximal sigmoid colon, findings that could represent mild inflammatory changes and diverticulitis. Appendix: The appendix is visualized and is normal in configuration. Intraperitoneal space: Unremarkable. No free air. No significant fluid collection. Vasculature: Unremarkable. No abdominal aortic aneurysm. Lymph nodes: Unremarkable. No enlarged lymph nodes. Urinary bladder: Tiny gas density is seen within the bladder lumen possibly secondary to prior instrumentation although cystitis cannot be entirely excluded. Reproductive: Unremarkable as visualized. Bones/joints: Unremarkable. No acute fracture. Soft tissues: Unremarkable. CT/CT abdomen pelvis w con* [id number] IMPRESSION: 1. Diverticulosis of the descending and sigmoid colon. There are hazy opacity seen adjacent to the distal descending colon and proximal sigmoid colon, findings that could represent mild inflammatory changes and diverticulitis. 2. Subtle area hypoattenuation seen in the left renal cortex, findings that can be seen with pyelonephritis. Radiation Dose CTDIVOL = (mGy): DLP = 1751.33 (mGy-cm)
[2020-08-07] MEDS: iohexol 300 mg/mL 100 mL Btl IV (03:17)
--- NOTE | 2020-08-07 04:00 | W.ED.ABDPA2 ---
HPI - Abdominal Pain General: Chief Complaint: Abdominal Pain Stated Complaint: N/V/D Time Seen by Provider: 08/07/20 01:21 History of Present Illness: HPI narrative: 69-year-old female with a history of atrial fibrillation. She was admitted a couple of weeks ago in [facility] with rapid ventricular response. She presents tonight by EMS. She lives alone. She tells me that she has had abdominal pain, nausea, vomiting, and diarrhea for the past several days. Her pain worsened over the past couple of days. She was generally weak at home and was hard to get around. She is checked her temperature, and has not had a fever, but she has felt warm and chilled at night. She denies any urinary symptoms. She denies any blood in the stool. MD elicited complaint: abdominal pain Pertinent past history: other Onset (ago): day(s) Pain Consistency: constant Location: Diffuse Severity: moderate Quality: cramping and aching Radiation: none Exacerbating factors: nothing Associated Symptoms: Reports change in bowel habits, chills, nausea, poor appetite and vomiting; Denies coffee ground emesis, fever(s), hematuria and hematemesis Review of Systems Const: Reports: chills; Denies: fever(s) Eyes: Reports: change in vision Card: Denies: chest pain or palpitations Resp: Denies: dyspnea, productive cough or non-productive cough GI: Reports: nausea, vomiting and change in bowel habits; Denies: hematemesis or coffee ground emesis : Denies: hematuria Neuro: Reports: dizziness; Denies: headache(s) [facility] ED PFSH: Medical History Anti-TPO antibodies present Arthritis Atrial fibrillation Degenerative joint disease (DJD) of lumbar spine Diastolic dysfunction 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 High risk medication use HTN (hypertension) IBS (irritable bowel syndrome) Immunization counseling Inflammatory arthritis Recurrent major depressive disorder Stenosis, cervical spine Systemic lupus erythematosus Surgical History S/p bilateral carpal tunnel release S/P cholecystectomy S/P foot surgery, left S/P lumbar discectomy S/P tubal ligation Family History Father Cancer Other Diabetes Lung disease Rheumatoid arthritis Denies family history of Lupus CAD (coronary artery disease) Chronic kidney disease (CKD) Hypertension Stroke Social History Smoking and tobacco status: never smoked Marital status: History of recent travel: No Physical Exam Const: COMMON NORMALS: no acute distress and alert GENERAL APPEARANCE: cooperative HENMT: COMMON NORMALS: normocephalic and Normal external nose present HEAD & SCALP: normocephalic FACE & SINUS: face symmetric NOSE: Normal external nose present Chest: COMMONS NORMALS: normal inspection of the chest Resp: COMMON NORMALS: normal respiratory effort, No use of accessory muscles and clear to auscultation bilaterally AUSCULTATION: clear to auscultation bilaterally Cardio: COMMON NORMALS: Peripheral pulses 2+ throughout RATE: tachycardic RHYTHM: abnormal rhythm irregularly irregular PERIPHERAL PULSES: Peripheral pulses 2+ throughout GI: COMMON NORMALS: Soft to palpation INSPECTION: Yes normal to inspection PALPATION: Yes Soft to palpation, Yes Tenderness to palpation present (GI) (Diffuse) and Yes Guarding due to palpation present (GI) : BLADDER/KIDNEY EXAM: No CVA tenderness Back/Pelvis: GENERAL BACK: No CVA tenderness Neuro: SENSORIUM/ORIENTATION: Yes alert Course Consultations: Consultation #1: tammie Vital Signs: Vital signs: Vital Signs Temperature 98.8 F 08/07/20 01:23 Pulse Rate 95 08/07/20 01:23 Blood Pressure 123/78 08/07/20 01:23 Pulse Oximetry 96 08/07/20 01:23 MDM - Abdominal Pain MDM Narrative: Medical decision making narrative: Electrolytes are normal. Slightly hemoconcentrated. Patient has a tender belly. White blood cell count is not elevated, but CRP is. Diverticulitis on CT. Urinalysis is a contaminated sample, but does not show signs of UTI. Mention is made of possible pyelonephritis on CT, but this is unlikely given urinalysis. This lady lives alone, she shows clinical signs of dehydration, she is having trouble getting around her house, and she has been vomiting. The fear is that she will vomit antibiotics and her condition will worsen at home. Her heart rate is another issue, as she was in the 130s to 140s A. fib on arrival here. Metoprolol has improved her rate, but is still elevated. Lab Data: Labs: Lab Results 08/07/20 08/07/20 08/07/20 Range/Units 02:20 02:20 02:20 WBC 7.9 (4.0-10.0) 10^3/ uL RBC 4.96 (4.1-5.3) 10^6/u L Hgb 15.6 H (11.5-15.3) g/dL Hct 47.6 H (37.0-47.0) % MCV 96.0 (81-99) fL MCH 31.5 (28.0-34.0) pg MCHC 32.8 (30.0-36.0) g/dL RDW 12.8 (12.1-15.1) % Plt Count 208 (130-400) 10^3/c mm MPV 10.1 (7.4-10.4) fL Neut % (Auto) 63.5 % Lymph % (Auto) 26.7 % [place] % (Auto) 7.6 % Eos % (Auto) 1.5 % Baso % (Auto) 0.4 % Neut # (Auto) 5.05 (1.8-7.7) 10^3/u L Lymph # (Auto) 2.1 (0.8-4.8) 10^3/u L [place] # (Auto) 0.6 (0.2-0.9) 10^3/u L Eos # (Auto) 0.1 (0.0-0.8) 10^3/u L Baso # (Auto) 0.0 (0.0-0.1) 10^3/u L Nucleated RBC % (a uto) 0 % Nucleated RBCs # 0.0 /100WBC Sodium 139 (136-145) mmol/L Potassium 3.7 (3.5-5.1) mmol/L Chloride 105 (98-107) mmol/L Carbon Dioxide 25 (22-29) mmol/L Anion Gap 12.7 (5-19) BUN 10 (8-23) mg/dL Creatinine 0.9 (0.5-0.9) mg/dL GFR Calculation 61.9 L (90-130) mL/min Glucose 109 (65-115) mg/dL Calculated Osmolal ity 288 (285-295) mOsm/k g Lactate 2.0 (0.5-2.2) mmol/L Calcium 8.2 L (8.5-10.5) mg/dL Total Bilirubin 0.4 (0.15-1.2) mg/dL AST 13 (0-32) U/L ALT 18 (0-33) U/L Alkaline Phosphata se 80 (35-105) IU/L C-Reactive Protein 38.3 H (0.0-4.9) mg/L Total Protein 6.7 (6.6-8.7) g/dL Albumin 3.6 (3.5-5.2) g/dL Globulin 3.1 (1.3-4.6) g/dL Lipase 11 L (13-60) U/L Urine Color (Yellow) Urine Appearance (CLEAR) Urine pH (5-7) Ur Specific Gravit y (1.005-1.030) Urine Protein (Negative) Urine Glucose (UA) (Normal) Urine Ketones (Negative) Urine Blood (Negative) Urine Nitrate (Negative) Urine Bilirubin (Negative) Urine Urobilinogen (Negative) mg/dL Ur Leukocyte Nanci ase (Negative) Urine RBC (0-2) /hpf Urine WBC (0-5) /hpf Ur Squamous Epith Cells (0-5) /hpf Amorphous Sediment Urine Bacteria (NONE) /hpf Hyaline Casts /lpf Urine Mucus /hpf 08/07/ Range/Units 02:43 WBC (4.0-10.0) 10^3/ uL RBC (4.1-5.3) 10^6/u L Hgb (11.5-15.3) g/dL Hct (37.0-47.0) % MCV (81-99) fL MCH (28.0-34.0) pg MCHC (30.0-36.0) g/dL RDW (12.1-15.1) % Plt Count (130-400) 10^3/c mm MPV (7.4-10.4) fL Neut % (Auto) % Lymph % (Auto) % [place] % (Auto) % Eos % (Auto) % Baso % (Auto) % Neut # (Auto) (1.8-7.7) 10^3/u L Lymph # (Auto) (0.8-4.8) 10^3/u L [place] # (Auto) (0.2-0.9) 10^3/u L Eos # (Auto) (0.0-0.8) 10^3/u L Baso # (Auto) (0.0-0.1) 10^3/u L Nucleated RBC % (a uto) % Nucleated RBCs # /100WBC Sodium (136-145) mmol/L Potassium (3.5-5.1) mmol/L Chloride (98-107) mmol/L Carbon Dioxide (22-29) mmol/L Anion Gap (5-19) BUN (8-23) mg/dL Creatinine (0.5-0.9) mg/dL GFR Calculation (90-130) mL/min Glucose (65-115) mg/dL Calculated Osmolal ity (285-295) mOsm/k g Lactate (0.5-2.2) mmol/L Calcium (8.5-10.5) mg/dL Total Bilirubin (0.15-1.2) mg/dL AST (0-32) U/L ALT (0-33) U/L Alkaline Phosphata se (35-105) IU/L C-Reactive Protein (0.0-4.9) mg/L Total Protein (6.6-8.7) g/dL Albumin (3.5-5.2) g/dL Globulin (1.3-4.6) g/dL Lipase (13-60) U/L Urine Color Yellow (Yellow) Urine Appearance Sl hazy (CLEAR) Urine pH 5 (5-7) Ur Specific Gravit y 1.030 (1.005-1.030) Urine Protein Trace (Negative) Urine Glucose (UA) Norm (Normal) Urine Ketones 1+ H (Negative) Urine Blood Neg (Negative) Urine Nitrate Negative (Negative) Urine Bilirubin 1+ H (Negative) Urine Urobilinogen 1 H (Negative) mg/dL Ur Leukocyte Nanci ase Negative (Negative) Urine RBC 0-4 H (0-2) /hpf Urine WBC 0-4 H (0-5) /hpf Ur Squamous Epith Cells 25-40 H (0-5) /hpf Amorphous Sediment Not Reportable Urine Bacteria 1+ H (NONE) /hpf Hyaline Casts 10-15 H /lpf Urine Mucus 4+ /hpf Discharge Plan Discharge Patient Disposition: Placed in Observation Clinical Impression: Atrial fibrillation with rapid ventricular response, Diverticulitis Coding Level of Care Code ED Balance Staff Inspector for Chg Fwd Exam Detailed
--- NOTE | 2020-08-07 04:05 | PM.HP ---
Providers/Chief Complaint Primary Care Provider: Gilda Ayoub Chief Complaint: N/V/D History of Present Illness Lisa Montoya is a 69 year old female hx of atrial fibrillation, history of Guillain-Bennett?, questionable diagnosis of lupus, BRIJESH LUCINA panel negative, rheumatoid CCP negative positive anti-TPO antibody, she has polyarthralgia which responded well to prednisone, takes sulfasalazine as well presenting today with chief complaint of metallic taste and diarrhea. Patient was discharged recently after management of A. fib RVR and diastolic congestive heart failure exacerbation, Covid antigen and PCR negative, she was treated for upper tract infection with doxycycline. Patient is stating that since her discharge she was not able to resume Eliquis and prednisone because of her metallic taste, she has had extremely dry mouth and noticing increased salivation, nausea without any vomiting. She also started noticing diarrhea 10 days ago, has not noticed any blood or abdominal pain. No recent fever. She tried to cut down her fluids because of previous history of diastolic congestive heart failure exacerbation. She did not notice any chest pain, shortness of breath, dysuria. Diagnostics in the ER revealed diverticulitis without any signs of sepsis, hemoconcentration, A. fib RVR, she is currently being admitted because of her inability to eat properly, patient was endorsing sore throat,, posterior pharyngeal wall is hyperemic with mild whitish streaking, in the ER she was given ciprofloxacin and Flagyl, abnormal UA however patient is not endorsing any signs or symptoms, no CVA tenderness Review of Systems Const: Reports: chills, body aches, change in appetite, fatigue and malaise; Denies: fever(s) Eyes: Denies: change in vision ENMT: Reports: throat pain Card: Denies: chest pain Resp: Denies: dyspnea GI: Reports: nausea and diarrhea : Reports: flank pain Musc: Denies: neck pain Skin/Breast: Reports: lesions Neuro: Denies: headache(s) Psych: Denies: anxiety Endo: Denies: polyuria Henry/Lymph: Denies: easy bruising All/Imm: Denies: urticaria Medications/Allergies Home Medications Medication Instructions Recorded Confirmed Last Taken Type apixaban 5 mg tablet 5 mg PO BID@1100,2300 04/19/19 07/24/20 07/24/20 History dicyclomine 10 mg capsule 20 mg PO QID PRN cap 04/19/19 07/24/20 Unknown History fluticasone propionate 50 2 spray INTRANASAL DAILY@1100 ml 04/19/19 07/24/20 07/24/20 History mcg/actuation nasal spray,suspension paroxetine HCl 40 mg tablet 20 mg PO DAILY@1100 tab 10/18/19 07/24/20 07/23/20 History isosorbide mononitrate 15 mg PO BID@1100,2300 07/24/20 07/24/20 07/24/20 History prednisone 5 mg PO DAILY@1100 07/24/20 07/24/20 07/23/20 History sulfasalazine See Rx Instructions .ROUTE .COMPLEX 07/24/20 07/24/20 07/23/20 History albuterol sulfate [Ventolin HFA] 1 puff INHALATION Q4H.RESPIRATORY 07/25/20 Unknown Rx PRN #8.5 g amlodipine 5 mg PO DAILY #0 tab 07/25/20 07/24/20 07/24/20 14:00 Rx aspirin 81 mg PO DAILY 30 Days #30 tab 07/25/20 Unknown Rx atorvastatin 40 mg PO BEDTIME 30 Days #30 tab 07/25/20 Unknown Rx benzonatate 100 mg PO TID PRN 15 Days #45 cap 07/25/20 Unknown Rx furosemide 20 mg PO DAILY 30 Days #30 tab 07/25/20 07/24/20 Unknown Rx metoprolol tartrate 50 mg PO BID@0900,2100 30 Days #60 07/25/20 Unknown Rx tab potassium chloride [Klor-Con 10] 10 meq PO DAILY 30 Days #30 tab 07/25/20 Unknown Rx Allergies Allergy/AdvReac Type Severity Reaction Status Date / Time Penicillins Allergy Unknown Rash Verified 07/24/20 20:50 PFSH Acute PFSH: Medical History Anti-TPO antibodies present Arthritis Atrial fibrillation Degenerative joint disease (DJD) of lumbar spine Diastolic dysfunction 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 High risk medication use HTN (hypertension) IBS (irritable bowel syndrome) Immunization counseling Inflammatory arthritis Recurrent major depressive disorder Stenosis, cervical spine Systemic lupus erythematosus Surgical History S/p bilateral carpal tunnel release S/P cholecystectomy S/P foot surgery, left S/P lumbar discectomy S/P tubal ligation Family History Father Cancer Other Diabetes Lung disease Rheumatoid arthritis Denies family history of Lupus CAD (coronary artery disease) Chronic kidney disease (CKD) Hypertension Stroke Social History Smoking and tobacco status: never smoked Marital status: History of recent travel: No Vitals/I&O/Wt Last Vital Signs Temp 98.8 F 08/07/20 01:23 Pulse 95 08/07/20 01:23 BP 123/78 08/07/20 01:23 Pulse Ox 96 08/07/20 01:23 Weight last 48 hrs Weight 113.398 kg Physical Exam Narrative: EXAM NARRATIVE: Morbidly obese female currently in no active distress currently saturating well on room air blood pressure normal Posterior pharyngeal wall hyperemia with white streaks Oral sores S1, S2 variable no active signs of CHF exacerbation Abdomen soft nontender no CVA tenderness bowel sounds sluggish, soft abdomen nontender Lower extremity no edema gangrene ulcer No neurological deficit EOMI, PERRLA Appropriate mood and affect No acute respiratory distress no audible stridor or wheezing Data : 08/07/20 02:20 08/07/20 02:20 A&P Assessment and plan (1) Atrial fibrillation with rapid ventricular response: Status: Acute (2) Diverticulitis: Status: Acute (3) Anti-TPO antibodies present: Status: Acute Additional A&P Information Noncomplicated diverticulitis This is her second episode of diverticulitis will need outpatient colonoscopy once inflammation subsides Considering penicillin allergy would use ciprofloxacin and Flagyl for now Full liquid diet and advance as tolerated Rule out C. difficile, she was given doxycycline on previous admission Oral thrush White streak posterior pharyngeal wall we will start nystatin she takes prednisone 5 mg on daily basis Would request strep throat swab Inflammatory polyarthralgia Follows up with internet marketing intern, her autoimmune work-up is negative, no diagnosis of rheumatoid arthritis, internet marketing intern has started sulfasalazine along steroid Hold sulfasalazine for now and continue prednisone, normal blood pressure no signs of adrenal crisis Anti-TPO antibodies however TSH is 1.7 not on levothyroxine at this point A. fib acute RVR: Continue Eliquis and AV maury blocking agent Patient has not taken Eliquis in last 10 days which is attributing to the initiation of aspirin from previous admission, she was confused whether she should resume Eliquis at home or not Abnormal UA No CVA tenderness or dysuria Asymptomatic Full code Advance diet as tolerated DVT prophylaxis not indicated due to Eliquis use Attestations Medical Necessity Statement*: Anticipating discharge in less than 48 hours will need IV antibiotics for diverticulitis with underlying nausea Time Spent in Patient Care: 40mins Coding Level of Care Code Acute Dismantler for Chg Fwd Diagnoses Atrial fibrillation with rapid ventricular response I48.91 Diverticulitis K57.92 Anti-TPO antibodies present R76.8
[2020-08-07] MEDS: ciprofloxacin 400 MG/200 ML PREMIX 200 MG IV ×2 (05:14→17:11)
[2020-08-07] MEDS: morphine 4 mg/mL SDV 1 mL IVP (05:21)
[2020-08-07] MEDS: metroNIDAZOLE IV 500 MG/100 ML PREMIX 100 MG IV ×3 (05:23→21:03)
[2020-08-07] MEDS: sodium chloride 0.9% 1,000 ML 30 ML IV (06:42)
[2020-08-07] MEDS: nystatin 100,000 unit/mL UDC 5 mL 200000 UNIT PO ×4 (11:13→20:59)
[2020-08-07] MEDS: predniSONE 5 mg Tablet PO (11:17)
[2020-08-07] MEDS: apixaban 5 mg Tablet PO ×2 (11:18→22:14)
[2020-08-07 15:19] LABS: Rapid Strep A Test Negative (Negative)
--- NOTE | 2020-08-07 15:49 | P.PN_ITS ---
Subjective Subjective: Interval history: Overnight labs and H&P reviewed. No acute interim events. Afebrile, hemodynamically stable. 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 fib acute RVR: Continue Eliquis and AV maury blocking agent Patient has not taken Eliquis in last 10 days which is attributing to the initiation of aspirin from previous admission, she was confused whether she s hould resume Eliquis at home or not Abnormal UA No CVA tenderness or dysuria Asymptomatic Full code Advance diet as tolerated DVT prophylaxis not indicated due to Eliquis use Attestations Medical Necessity Statement*: continued observation until tolerating po inatke , iv abx Coding Level of Care Code Acute Locomotive Supervisor for Lisseth Fwd Diagnoses Atrial fibrillation with rapid ventricular response I48.91 Diverticulitis K57.92 Anti-TPO antibodies present R76.8
[2020-08-07] MEDS: metoprolol tartrate 50 mg Tablet PO (20:59)
[2020-08-08] VITALS: BP 114/72; PULSE 64; RESP 17; TEMP 36.8; O2SAT 96
[2020-08-08 04:00] VITALS: BP 140/78; PULSE 63; RESP 16; TEMP 36.6; O2SAT 91
[2020-08-08] MEDS: ciprofloxacin 400 MG/200 ML PREMIX 200 MG IV (04:18)
[2020-08-08] MEDS: metroNIDAZOLE IV 500 MG/100 ML PREMIX 100 MG IV (05:40)
[2020-08-08] MEDS: sodium chloride 0.9% 1,000 ML 30 ML IV (05:40)
[2020-08-08 06:13] LABS: Basophils % 0.5 %; Eosinophils # 0.1 10^3/uL (0.0-0.8); Eosinophils % 2.4 %; Hematocrit 37.8 % (37.0-47.0); Hemoglobin 11.9 g/dL (11.5-15.3); Lymphocytes # 2.5 10^3/uL (0.8-4.8); Lymphocytes % 42.8 %; Mean Corpuscular HGB Conc 31.5 g/dL (30.0-36.0); Mean Corpuscular Hemoglobin 31.1 pg (28.0-34.0); Mean Corpuscular Volume 98.7 fL (81-99); Mean Platelet Volume 10.6 fL (7.4-10.4); Monocytes # 0.4 10^3/uL (0.2-0.9); Monocytes % 6.8 %; Neutrophils # 2.72 10^3/uL (1.8-7.7); Neutrophils % 47.3 %; Nucleated Red Blood Cells % 0 %; Platelet Count 178 10^3/cmm (130-400); Red Blood Count 3.83 10^6/uL (4.1-5.3); White Blood Count 5.8 10^3/uL (4.0-10.0)
[2020-08-08 07:01] VITALS: BP 126/73; PULSE 61; RESP 18; TEMP 36.7; O2SAT 97
[2020-08-08 08:23] VITALS: PULSE 64; RESP 16; O2SAT 98
[2020-08-08] MEDS: nystatin 100,000 unit/mL UDC 5 mL 200000 UNIT PO ×2 (08:56→13:46)
[2020-08-08] MEDS: metoprolol tartrate 50 mg Tablet PO (08:57)
[2020-08-08] MEDS: amlodipine 5 mg Tablet PO (08:57)
[2020-08-08 10:42] VITALS: BP 145/81; PULSE 68; RESP 15; TEMP 36.8; O2SAT 94
[2020-08-08] MEDS: predniSONE 5 mg Tablet PO (11:15)
[2020-08-08] MEDS: apixaban 5 mg Tablet PO (11:15)
[2020-08-08 15:51] VITALS: BP 145/81; PULSE 68; RESP 15; TEMP 36.8; O2SAT 94
--- NOTE | 2020-08-08 16:42 | PM.DCS ---
Discharge Providers Date of Admission: 08/07/20 06:04 Date of Discharge: August 08, 2020 Attending Provider at Admission: Donald Wakefield MD Attending Provider at Discharge: Kim Abrams MD Primary Care Provider: Gilda Ayoub Diagnoses at Discharge Discharge Diagnosis (1) Atrial fibrillation with rapid ventricular response: Status: Acute (2) Diverticulitis: Status: Acute (3) Anti-TPO antibodies present: Status: Acute Reason for Visit Reason for Visit: N/V/D Hospital Course Hospital Course 69 year old female hx of atrial fibrillation, lupus,polyarthralgia on prednisone and sulfasalazine as well presenting today with chief complaint of metallic taste and diarrhea. Diagnostics in the ER revealed diverticulitis without any signs of sepsis, hemoconcentration, A. fib RVR, she was admitted because of her inability to eat properly, need for iv fluids and iv abx. She received treatment with iv ciprofloxacin and flagyl, improved during course of admission , no leukocytosis, able to tolerate po intake at time of discharge. afberile, hemodynamically stable. C diff PCR negative. Discharged with recommendation to complete po cipro and metronidazole for 5 days, follow up with PCP Physical Exam Narrative: EXAM NARRATIVE: GEN: Awake, alert and oriented, no acute distress CVS: S1S2 N RS: CTA B/L Abd: Soft, nt/nd , bs+ MANAGER STAFFING: no focal neuro deficits Discharge Data Data Completed and Pending: Completed Studies During Hospitalization Category Date Time Status CT abdomen pelvis w con* [id number] Urge nt Cat Scan 08/07/20 03:01 Completed Pending at discharge Category Date Time Status Streptococcus Cul ture Group A Routi ne Lab 08/07/20 14:04 Received Labs from last 24 hours 08/08/20 04:50 WBC 5.8 RBC 3.83 L Hgb 11.9 Hct 37.8 MCV 98.7 MCH 31.1 MCHC 31.5 RDW 13.0 Plt Count 178 MPV 10.6 H Neut % (Auto) 47.3 Lymph % (Auto) 42.8 [place] % (Auto) 6.8 Eos % (Auto) 2.4 Baso % (Auto) 0.5 Neut # (Auto) 2.72 Lymph # (Auto) 2.5 [place] # (Auto) 0.4 Eos # (Auto) 0.1 Baso # (Auto) 0.0 Nucleated RBC % (a uto) 0 Nucleated RBCs # 0.0 Vitals: Last Vital Signs Temp 98.3 F 08/08/20 15:51 Pulse 68 08/08/20 15:51 Resp 15 08/08/20 15:51 BP 145/81 08/08/20 15:51 Pulse Ox 94 08/08/20 15:51 Discharge Plan Discharge Patient Disposition: Home Condition: Stable Prescriptions: New Cipro 500 mg tablet 500 mg PO BID 5 Days Qty: 10 RF: 0 Flagyl 500 mg tablet 500 mg PO Q8H 5 Days Qty: 15 RF: 0 Continued apixaban 5 mg tablet 5 mg PO BID@1100,2300 RF: 0 fluticasone propionate [Flonase Allergy Relief] 50 mcg/actuation spray,suspension 2 spray INTRANASAL DAILY@1100 RF: 0 dicyclomine 10 mg capsule 20 mg PO QID PRN (Reason: abdominal cramps) RF: 0 paroxetine HCl 40 mg tablet 20 mg PO DAILY@1100 RF: 0 sulfasalazine 500 mg tablet See Rx Instructions .ROUTE .COMPLEX RF: 0 Hold Instructions: Resume on 08/08/20. until for 2 weeks isosorbide mononitrate 30 mg tablet extended release 24 hr 15 mg PO BID@1100,2300 RF: 0 prednisone 5 mg tablet 5 mg PO DAILY@1100 RF: 0 albuterol sulfate [Ventolin HFA] 90 mcg/actuation Hfa Aerosol Inhaler 1 puff inhalation Q4H.RESPIRATORY PRN (Reason: shortness of breath or wheezing) Qty: 8.5 RF: 0 benzonatate 100 mg Capsule 100 mg PO TID PRN (Reason: Cough) 15 Days Qty: 45 RF: 0 metoprolol tartrate 50 mg Tablet 50 mg PO BID@0900,2100 30 Days Qty: 60 RF: 0 potassium chloride [Klor-Con 10] 10 mEq tablet extended release 10 meq PO DAILY 30 Days Qty: 30 RF: 0 amlodipine 5 mg tablet 5 mg PO DAILY Qty: 0 RF: 0 furosemide 20 mg tablet 20 mg PO DAILY 30 Days Qty: 30 RF: 0 atorvastatin 40 mg Tablet 40 mg PO BEDTIME 30 Days Qty: 30 RF: 0 aspirin 81 mg Tablet,Delayed Release (Dr/Ec) 81 mg PO DAILY 30 Days Qty: 30 RF: 0 Discharge Orders: Discharge Order (Routine); Ordered 08/08/20 Ordered By: Kim Abrams Referrals: Gilda Ayoub [Primary Care Provider] - 08/11/20 11:00 am Patient Instructions: Atrial Fibrillation, Ciprofloxacin (By mouth), Metronidazole (By mouth), Diverticulitis (DC), Opioid Safety Discharge Attestations Time Spent in Discharge Care*: less than 30 min Quality Metrics Clinical Quality Measures During this hospital stay, did patient experience: None Coding Level of Care Code Acute Chg FW DC note Diagnoses Atrial fibrillation with rapid ventricular response I48.91 Diverticulitis K57.92 Anti-TPO antibodies present R76.8
== END 2020-08-08 15:52 | disposition home or self-care (01) ==
LOC: ER 04:21 → MEDSURG 06:40
PROVIDERS: Admitting Provider Internal Medicine; Emergency Provider Emergency Medicine; PCP Registered Nurse; Visit Provider Student in an Organized Health Care Education/Training Program
DX: I48.91 Unspecified atrial fibrillation (principal); K57.92 Diverticulitis of intestine, part unspecified, without perforation or abscess without bleeding; R76.8 Other specified abnormal immunological findings in serum; M19.90 Unspecified osteoarthritis, unspecified site; I10 Essential (primary) hypertension
CPT/HCPCS: 36415; 74177; 80053; 81001; 83605; 83690; 85025; 86140; 87081; 87493; 87880; 96361; 96365; 96367; 96375; 96376; 99285; G0378; J0744; J2270; J2405; J3490; J7030; J7512; Q9967; S0030

== ENCOUNTER → 2021-01-03 09:25 | Outpatient (BNVA) | payer MEDICARE, MEDICAID, SELFPAY | PROVIDERS: PCP Registered Nurse; Visit Provider Internal Medicine Rheumatology | DX: M19.90 Unspecified osteoarthritis, unspecified site (principal); Z79.899 Other long term (current) drug therapy | CPT/HCPCS: 36415; 80076; 82565; 84439; 84443; 85025; 86140 ==

== ENCOUNTER 2021-01-18 13:08 | Emergency (ER) | payer MEDICARE, MEDICAID, SELFPAY ==
[2021-01-18] VITALS (12 sets, daily range): BP systolic 102–159; BP diastolic 65–108; PULSE 60–114; RESP 13–22; TEMP 36.5–38.9; O2SAT 94–98; BMI 44.2
--- NOTE | 2021-01-18 13:36 | XR_ITS ---
WS: [id number] XR chest 1V portable [id number] REASON FOR EXAM: cp FINDINGS: Chest is stable compared to 07/24/2020. Moderate tortuosity of the thoracic aorta. Heart at the upper limits of normal in size. Calcified granulomatous disease in both hemithoraces. No active pulmonary parenchymal or pleural disease. Moderate degenerative change in the mid and lower thoracic spine. XR/XR chest 1V portable [id number] IMPRESSION: No acute chest abnormality.
--- NOTE | 2021-01-18 13:36 | ECG_ITS ---
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 Measurements Intervals [place] Rate: 104 P: [place]: QRS: 24 QRSD: 105 T: -13 QT: 340 QTc: 448 Interpretive Statements ATRIAL FIBRILLATION WITH RAPID VENTRICULAR RESPONSE LOW QRS VOLTAGE IN PRECORDIAL LEADS [QRS DEFLECTION < 1.0 mV IN CHEST LEADS] Compared to ECG 07/24/2020 23:29:37 Low QRS voltage now present Ventricular premature complex(es) no longer present Aberrant conduction of supraventricular beat(s) no longer present T-wave abnormality no longer present Electronically Signed On 01-19-2021 5:43:12 CDT by Zaina Paniagua M.D. [id number]
[2021-01-18 13:41] LABS: Basophils % 0.6 %; Eosinophils # 0.1 10^3/uL (0.0-0.8); Eosinophils % 1.2 %; Hematocrit 42.3 % (37.0-47.0); Hemoglobin 14.1 g/dL (11.5-15.3); Lymphocytes # 2.7 10^3/uL (0.8-4.8); Lymphocytes % 39.5 %; Mean Corpuscular HGB Conc 33.3 g/dL (30.0-36.0); Mean Corpuscular Hemoglobin 31.9 pg (28.0-34.0); Mean Corpuscular Volume 95.7 fl (81-99); Mean Platelet Volume 10.2 fL (7.4-10.4); Monocytes # 0.5 10^3/uL (0.2-0.9); Monocytes % 7.3 %; Neutrophils # 3.55 10^3/uL (1.8-7.7); Neutrophils % 51.1 %; Nucleated Red Blood Cells % 0 %; Platelet Count 278 10^3/cmm (130-400); Red Blood Count 4.42 10^6/uL (4.1-5.3); White Blood Count 6.9 10^3/uL (4.0-10.0)
--- NOTE | 2021-01-18 13:49 | W.ED.CHESTPA ---
HPI - Chest Pain General: Chief Complaint: Chest Pain Stated Complaint: chest pains into the back hot and cold sweats Time Seen by Provider: 01/18/21 13:25 History of Present Illness: HPI narrative: This patient comes to emergency department by private vehicle. She states that she has been having some sensation of her heart beating faster than normal and a pressure sensation in her chest that began yesterday and has continued intermittently today. She states she slept well through the night and woke up and the symptoms seem to be present again. She states that there is seems to be radiation of pain to her left shoulder. He states she also gets sensations of hot flashes at times. She has been taking all her medications as prescribed. She has a known history of atrial fibrillation as well as diastolic heart failure. Also had intermittent abdominal pains for months. She states she has a history of chronic stomach stomach problems and diverticulosis. She denies blood in her stool or blood in her urine. No known exposure to infectious disease. MD complaint: chest discomfort Associated symptoms: Reports palpitations; Deny fever(s) or vomiting Review of Systems Const: Denies: fever(s), chills, body aches or change in appetite Eyes: Denies: change in vision Card: Reports: palpitations and irregular heart rhythm GI: Denies: vomiting, hematemesis, diarrhea or hematochezia : Denies: flank pain or difficulty voiding Musc: Denies: back pain or extremity pain Psych: Denies: depression, mood swings or panic attacks Endo: Denies: polyuria, polydipsia or cold intolerance Henry/Lymph: Denies: easy bleeding PFSH ED PFSH: Medical History Anti-TPO antibodies present Arthritis Atrial fibrillation Degenerative joint disease (DJD) of lumbar spine Diastolic dysfunction 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 High risk medication use HTN (hypertension) IBS (irritable bowel syndrome) Immunization counseling Inflammatory arthritis Recurrent major depressive disorder Stenosis, cervical spine Systemic lupus erythematosus Surgical History S/p bilateral carpal tunnel release S/P cholecystectomy S/P foot surgery, left S/P lumbar discectomy S/P tubal ligation Family History Father Cancer Other Diabetes Lung disease Rheumatoid arthritis Denies family history of Lupus CAD (coronary artery disease) Chronic kidney disease (CKD) Hypertension Stroke Social History Smoking and tobacco status: never smoked Marital status: History of recent travel: No Physical Exam Narrative: EXAM NARRATIVE: She is alert and answers questions in a goal-directed fashion. Appears to be in no acute distress. Const: COMMON NORMALS: patient oriented x3 HENMT: COMMON NORMALS: normocephalic HEAD & SCALP: normocephalic Eye: COMMON NORMALS: Equal, round and reactive pupils present and EOMs intact bilaterally PUPIL: Yes Equal, round and reactive pupils present Neck/C-Spine: COMMON NORMALS: full ROM, no lymphadenopathy and No carotid bruits OTHER: Minimal superior trapezius tenderness bilaterally. Lymph: LYMPHATIC: no lymphadenopathy noted Chest: COMMONS NORMALS: normal inspection of the chest and normal palpation of entire chest wall Resp: COMMON NORMALS: normal respiratory effort, No retractions, No use of accessory muscles and clear to auscultation bilaterally AUSCULTATION: clear to auscultation bilaterally Cardio: COMMON NORMALS: Peripheral pulses 2+ throughout RHYTHM: abnormal rhythm irregularly irregular PERIPHERAL PULSES: Peripheral pulses 2+ throughout GI: COMMON NORMALS: Soft to palpation, non-tender and no masses PALPATION: Yes Soft to palpation and No Rebound tenderness present : COMMON NORMALS: Yes no CVA tenderness BLADDER/KIDNEY EXAM: Yes no CVA tenderness Back/Pelvis: COMMON NORMALS: no CVA tenderness, thoracic and lumbar spine normal to inspection, no thoracic nor lumbar tenderness and thoraco-lumbar ROM normal THORACIC SPINE/UPPER BACK: Yes paraspinal muscle tenderness OTHER: Normal spinal curves. No rash or ecchymosis. Extremity: COMMON NORMALS: normal to inspection, full ROM, no clubbing, cyanosis or edema, no calf tenderness and no pedal edema Neuro: COMMON NORMALS: patient oriented x3, moves all extremities, no focal motor deficits, no sensory deficits noted and gait normal Skin: COMMON NORMALS: no rashes or lesions noted and no wounds GENERAL SKIN EXAM: no rashes or lesions noted Course Reevaluation(s): Reevaluation #1: Patient is now in a controlled ventricular response and has been for some time. She specifically denies any ongoing symptoms particularly that Len or pressure-like feeling she was having in her diaphragm area. Her troponins are reassuring. No other abdomen allergies on her ancillary studies. Nothing to suggest ACS or other worrisome etiology of her symptoms at this time. White blood count, transaminases etc. are also normal. She takes metoprolol twice daily for rate control. I have advised her that she should be attuned to recurrence of her symptoms and should they become more frequent she may need medication adjustment however at this point I think she is suitable to be discharged for outpatient management. No evidence at this time of an ongoing emergency medical condition. She acknowledged our discussion. Stable for discharge. Vital Signs: Vital signs: Vital Signs Temperature 97.7 F 01/18/21 16:52 Pulse Rate 60 01/18/21 16:52 Respiratory Rate 16 01/18/21 16:52 Blood Pressure 159/91 01/18/21 16:52 Pulse Oximetry 98 01/18/21 16:52 MDM - Chest Pain Lab Data: Labs: Lab Results 01/18/21 01/18/21 01/18/21 13:20 13:20 13:20 WBC 6.9 10^3/uL 10^3/ uL (4.0-10.0) RBC 4.42 10^6/uL 10^6 /uL (4.1-5.3) Hgb 14.1 g/dL g/dL (11.5-15.3) Hct 42.3 % % (37.0-47.0) MCV 95.7 fl fl (81-99) MCH 31.9 pg pg (28.0-34.0) MCHC 33.3 g/dL g/dL (30.0-36.0) RDW 12.0 % L % (12.1-15.1) Plt Count 278 10^3/cmm 10^3 /cmm (130-400) MPV 10.2 fL fL (7.4-10.4) Neut % (Auto) 51.1 % % Lymph % (Auto) 39.5 % % [place] % (Auto) 7.3 % % Eos % (Auto) 1.2 % % Baso % (Auto) 0.6 % % Neut # (Auto) 3.55 10^3/uL 10^3 /uL (1.8-7.7) Lymph # (Auto) 2.7 10^3/uL 10^3/ uL (0.8-4.8) [place] # (Auto) 0.5 10^3/uL 10^3/ uL (0.2-0.9) Eos # (Auto) 0.1 10^3/uL 10^3/ uL (0.0-0.8) Baso # (Auto) 0.0 10^3/uL 10^3/ uL (0.0-0.1) Nucleated RBC % (a uto) 0 % % Nucleated RBCs # 0.0 /100WBC /100W BC Sodium 138 mmol/L mmol/L (136-145) Potassium 4.3 mmol/L mmol/L (3.5-5.1) Chloride 104 mmol/L mmol/L (98-107) Carbon Dioxide 24 mmol/L mmol/L (22-29) Anion Gap 14.3 (5-19) BUN 16 mg/dL mg/dL (8-23) Creatinine 0.8 mg/dL mg/dL (0.5-0.9) GFR Calculation Not Reportable Glucose 101 mg/dL mg/dL (65-115) Calculated Osmolal ity 287 mOsm/kg mOsm/ kg (285-295) Calcium 8.9 mg/dL mg/dL (8.5-10.5) Total Bilirubin 0.6 mg/dL mg/dL (0.15-1.2) AST 12 U/L U/L (0-32) ALT 11 U/L U/L (0-33) Alkaline Phosphata se 75 IU/L IU/L (35-105) Troponin T Baselin e 11 ng/L H ng/L (0-10) Troponin T 120 Min andrei Delta Troponin T Total Protein 6.4 g/dL L g/dL (6.6-8.7) Albumin 3.8 g/dL g/dL (3.5-5.2) Globulin 2.6 g/dL g/dL (1.3-4.6) 01/18/21 15:40 WBC RBC Hgb Hct MCV MCH MCHC RDW Plt Count MPV Neut % (Auto) Lymph % (Auto) [place] % (Auto) Eos % (Auto) Baso % (Auto) Neut # (Auto) Lymph # (Auto) [place] # (Auto) Eos # (Auto) Baso # (Auto) Nucleated RBC % (a uto) Nucleated RBCs # Sodium Potassium Chloride Carbon Dioxide Anion Gap BUN Creatinine GFR Calculation Glucose Calculated Osmolal ity Calcium Total Bilirubin AST ALT Alkaline Phosphata se Troponin T Baselin e Troponin T 120 Min andrei 8.46 ng/L ng/L (0-10) Delta Troponin T -2.54 ABS# L ABS# (0-10) Total Protein Albumin Globulin Discharge Plan Discharge Patient Disposition: Home Clinical Impression: Atrial fibrillation with rapid ventricular response Condition: Stable Prescriptions: No Action apixaban 5 mg tablet 5 mg PO BID@1100,2300 RF: 0 fluticasone propionate [Flonase Allergy Relief] 50 mcg/actuation spray,suspension 2 spray INTRANASAL DAILY@1100 RF: 0 dicyclomine 10 mg capsule 20 mg PO QID PRN (Reason: abdominal cramps) RF: 0 paroxetine HCl 40 mg tablet 20 mg PO DAILY@1100 RF: 0 metoprolol tartrate 50 mg tablet 50 mg PO BID Qty: 180 RF: 2 furosemide 20 mg tablet 20 mg PO DAILY Qty: 90 RF: 3 naproxen 500 mg tablet 500 mg PO DAILY RF: 0 potassium chloride 10 mEq capsule, extended release 10 meq PO DAILY Qty: 90 RF: 3 isosorbide mononitrate 30 mg tablet extended release 24 hr 15 mg PO BID@1100,2300 Qty: 30 RF: 6 prednisone 5 mg tablet 5 mg PO DAILY@1100 Qty: 30 RF: 0 albuterol sulfate [Ventolin HFA] 90 mcg/actuation Hfa Aerosol Inhaler 1 puff inhalation Q4H.RESPIRATORY PRN (Reason: shortness of breath or wheezing) Qty: 8.5 RF: 0 amlodipine 5 mg tablet 5 mg PO DAILY Qty: 0 RF: 0 Discharge Orders: Discharge ED (Routine); Ordered 01/18/21 Ordered By: Jeff Mays Referrals: Gilda Ayoub [Primary Care Provider] - Discharge Diet: Usual diet Discharge Activity: Resume usual activity Patient Instructions: Opioid Safety Activity Restrictions/Additional Instructions: Continue all your usual medications. If you develop similar, persistent, worsening symptoms which include chest pain difficulty breathing etc. return to the emergency department or follow-up with your regular doctor. Coding Level of Care Code ED Showroom Executive Director for Lisseth Fwd Exam Comprehensive
[2021-01-18 13:59] LABS: Troponin(5th) Baseline 11 ng/L (0-10)
[2021-01-18 14:00] LABS: Alanine Aminotransferase 11 U/L (0-33); Albumin Level 3.8 g/dL (3.5-5.2); Alkaline Phosphatase 75 IU/L (35-105); Anion Gap 14.3 (5-19); Aspartate Amino Transferase 12 U/L (0-32); Blood Urea Nitrogen 16 mg/dL (8-23); Calcium 8.9 mg/dL (8.5-10.5); Carbon Dioxide 24 mmol/L (22-29); Chloride 104 mmol/L (98-107); Globulin 2.6 g/dL (1.3-4.6); Glucose 101 mg/dL (65-115); Osmolality Calculated 287 mOsm/kg (285-295); Potassium 4.3 mmol/L (3.5-5.1); Sodium 138 mmol/L (136-145); Total Bilirubin 0.6 mg/dL (0.15-1.2); Total Protein 6.4 g/dL (6.6-8.7)
--- NOTE | 2021-01-18 15:36 | ECG_ITS ---
[facility] Test Date: 2021-01-18 Pat Name: Lisa Montoya Department: Room: Gender: Female [employer]: : 1950 Requested By: Jeff Mays Order Number: [id number] Irina MD: Zaina Paniagua M.D. Measurements Intervals [place] Rate: 114 P: [place]: QRS: 54 QRSD: 95 T: 11 QT: 323 QTc: 445 Interpretive Statements ATRIAL FIBRILLATION WITH RAPID VENTRICULAR RESPONSE SEPTAL MYOCARDIAL INFARCTION , OF INDETERMINATE AGE [40+ ms Q WAVE IN V1/V2] Compared to ECG 01/18/2021 13:16:56 Myocardial infarct finding now present Electronically Signed On 01-19-2021 5:48:42 CDT by Zaina Paniagua M.D. [id number]
--- NOTE | 2021-01-18 16:04 | PC.NURSE ---
Spoke with doctor about NIH stroke scale and fever.
--- NOTE | 2021-01-18 16:48 | PC.NURSE ---
Please disregard vital signs taken at 1557 and 1602. Charted on wrong patient.
[2021-01-18 17:06] LABS: Troponin 5 2HR 8.46 ng/L (0-10)
[2021-01-18 17:08] LABS: Troponin 5 2HR Delta -2.54 ABS# (0-10)
== END 2021-01-18 18:05 | disposition home or self-care (01) ==
PROVIDERS: Emergency Provider Emergency Medicine; PCP Registered Nurse
DX: I48.20 Chronic atrial fibrillation, unspecified (principal); I10 Essential (primary) hypertension; M32.9 Systemic lupus erythematosus, unspecified
CPT/HCPCS: 36415; 71045; 80053; 84484; 85025; 93005; 99284

== ENCOUNTER → 2021-02-08 10:12 | Outpatient (BNVA) | payer MEDICARE, MEDICAID, SELFPAY | PROVIDERS: PCP Registered Nurse; Visit Provider Internal Medicine Rheumatology | DX: M06.041 Rheumatoid arthritis without rheumatoid factor, right hand (principal); M06.042 Rheumatoid arthritis without rheumatoid factor, left hand; M25.50 Pain in unspecified joint; Z79.899 Other long term (current) drug therapy; R76.8 Other specified abnormal immunological findings in serum; M54.32 Sciatica, left side; Z71.89 Other specified counseling | CPT/HCPCS: 99214 ==

== ENCOUNTER → 2021-06-27 09:35 | Outpatient (BNVA) | payer MEDICARE, MEDICAID, SELFPAY | PROVIDERS: PCP Registered Nurse; Visit Provider Internal Medicine Rheumatology | DX: M06.041 Rheumatoid arthritis without rheumatoid factor, right hand (principal); M06.042 Rheumatoid arthritis without rheumatoid factor, left hand; Z79.899 Other long term (current) drug therapy; Z71.89 Other specified counseling; M54.32 Sciatica, left side | CPT/HCPCS: 80076; 82565; 85025; 86140; 99214 ==